=== PATIENT | female | born 1940 | race Caucasian/White ===

== ENCOUNTER 2017-06-15 12:55 | Emergency (ER) | payer BC, OTHER ==
[~2017-06-15] VITALS: Ht 167.6 cm; Wt 104.3 kg
[2017-06-15] MEDS ORDERED: LIDOCAINE 1%/EPI 1:100,000 20 ML VIAL. INJ ONE (13:15)
[2017-06-15] MEDS ORDERED: DIPHTH,PERTUSS(ACELL),TET TOX 0.5 ML DISP.SYRIN. VAX IM ONE (13:30)
--- NOTE | 2017-06-15 13:45 | RAD ---
CT of the head without contrast, 06/15/2017: History: Fall, head trauma, laceration The ventricles are within normal limits in size. There is no shift of the midline structures. There is no evidence of acute intracranial hemorrhage or mass effect. There is mild cerebral atrophy compatible with the patient's age. IMPRESSION: No acute intracranial abnormality is detected. PQRS Compliance Statement: One or more of the following individualized dose reduction techniques were utilized for this examination: 1. Automated exposure control 2. Adjustment of the mA and/or kV according to patient size 3. Use of iterative reconstruction technique
[2017-06-15] MEDS ORDERED: GELATIN SPONGE SIZE 12-7MM SPONGE. TP ONE ×2 (14:00)
[2017-06-15 14:25] VITALS: BP 206/91
--- NOTE | 2017-06-15 14:33 | PHYS DOC ---
Past Medical History Past Medical History: No Pertinent History Past Surgical History: Cholecystectomy, Hysterectomy Alcohol Use: Rarely Drug Use: None Adult General Chief Complaint Chief Complaint: LACERATION/AVULSION HPI HPI Patient is a 76 year old female who presents with laceration or the R eyebrow and R hand after a mechanical fall. Pt reports she was helping her out of a car and backed up and didn't see the object behind her, fell and struck her head. Denies LOC, denies neck or back pain. No blood thinners, no headache , blurry vision or vomiting. Unsure of last tetanus. Review of Systems Review of Systems Constitutional: Denies fever or chills [] Eyes: Denies eye pain [] HENT: Denies nasal congestion or sore throat [] Respiratory: Denies cough or shortness of breath [] Cardiovascular: Denies chest pain GI: Denies abdominal pain, nausea, vomiting, or change in stools : Denies dysuria or hematuria [] Musculoskeletal: Denies back pain Integument: Denies rash, reports lacerations Neurologic: Denies headache, focal weakness or sensory changes [] Current Medications Current Medications Current Medications Medications (Trade) Dose Ordered Sig/[facility] Start Time Stop Time Status Last Admin Dose Admin Diphtheria/ Tetanus/Acell Pertussis (Boostrix) 0.5 ml ONCE ONCE 06/15/17 13:30 06/15/17 13:31 DC 06/15/17 14:18 0.5 ML Gelatin (Gelfoam Size 12-7mm) 1 each 1X ONCE 06/15/17 14:00 06/15/17 14:01 DC Lidocaine/ Epinephrine (Xylocaine 1%-Epi 1:100,000) 20 ml 1X ONCE 06/15/17 13:15 06/15/17 13:19 DC Allergies Allergies Allergies Coded Allergies Type Severity Reaction Last Updated Verified No Known Drug Allergies 02/26/14 No Physical Exam Physical Exam Constitutional: Well developed, well nourished, no acute distress, non-toxic appearance. [] HENT: Normocephalic, 2 cm linear lateral R eyebrow laceration with mild hemostasis, bilateral external ears normal, oropharynx moist, no oral exudates, nose normal.no facial deformity, no trismus Eyes: PERRLA, EOMI, conjunctiva normal, no discharge. [] Neck: Normal range of motion, no stepoffs or tenderness, supple, no stridor. [] Cardiovascular:Heart rate regular with regular rhythm, no murmur [] Lungs & Thorax: Bilateral breath sounds clear to auscultation, no wheeze Abdomen: Bowel sounds normal, soft, no tenderness, no masses, no pulsatile masses. [] Skin: Warm, dry, no erythema, no rash. [] Back: No stepoffs or tenderness, no CVA tenderness. [] Extremities: R hand circular laceration on distal medial palmar aspect with moderate hemostasis, flap but well approximated. Neurologic: Alert and oriented X 3, normal motor function, normal sensory function, no focal deficits noted. [] Psychologic: Affect normal, judgement normal, mood normal. [] Current Patient Data Vital Signs Vital Signs Date Time Temp Pulse Resp B/P (MAP) Pulse Ox O2 Delivery O2 Flow Rate FiO2 06/15/17 14:25 72 20 206/91 (129) 99 Room Air 06/15/17 13:10 97.9 97.9 EKG EKG [] Radiology/Procedures Radiology/Procedures head w/o: CT of the head without contrast, 06/15/2017: History: Fall, head trauma, laceration The ventricles are within normal limits in size. There is no shift of the midline structures. There is no evidence of acute intracranial hemorrhage or mass effect. There is mild cerebral atrophy compatible with the patient's age. IMPRESSION: No acute intracranial abnormality is detected. Course & Med Decision Making Course & Med Decision Making Pertinent Labs and Imaging studies reviewed. (See chart for details) tdap updated, pt's wound irrigated. gelfoam clot placed on the R eyebrow lac, 2 cm, approximated with dermabond, steristrips placed over held down with mastisol. R hand laceration 3 cm, glued with dermabond, steristrips, xeroform, 4x4, acebandage. Instructed to keep hand wrapped for 2 days, monitor for infection. Pt had incidental elevated BP, asx. No history, improved prior to dc but still elevated. Recommended f/u with PCP within 1 week for recheck and intiate HTN meds if continues to have elevated BP. Dragon Disclaimer Dragon Disclaimer This electronic medical record was generated, in whole or in part, using a voice recognition dictation system. Departure Departure Impression: Primary Impression: Head injury Additional Impressions: Laceration Hypertension Disposition: 01 HOME, SELF-CARE Condition: IMPROVED Patient Instructions: Head Injury, Adult, [id number], Laceration Care, Adult , [id number] Problem Qualifiers CHICHI RODRIGUEZ MD Jun 15, 2017 14:33
== END 2017-06-15 14:25 | disposition home or self-care (01) ==
LOC: ER 12:55
DX: S01.111A Laceration without foreign body of right eyelid and periocular area, initial encounter (principal); S61.411A Laceration without foreign body of right hand, initial encounter; I10 Essential (primary) hypertension; W18.09XA Striking against other object with subsequent fall, initial encounter; Y93.89 Activity, other specified; Y99.8 Other external cause status; Y92.89 Other specified places as the place of occurrence of the external cause
CPT/HCPCS: 12001; 12011; 70450; 90471; 90715; 99284-25

== ENCOUNTER 2019-07-10 09:47 | Emergency (ER) | payer BC ==
[~2019-07-10] VITALS: Ht 167.6 cm; Wt 99.8 kg
--- NOTE | 2019-07-10 11:08 | PHYS DOC ---
Past Medical History Past Medical History: Hypertension Past Surgical History: Cholecystectomy, Hysterectomy Alcohol Use: Rarely Drug Use: None Adult General Chief Complaint Chief Complaint: HYPERTENSION HPI HPI Patient is a 79 year old female with history of vertigo, hypertension though she states she has no history of hypertension who presents to the ED today to be evaluated for dizziness and high blood pressure. Patient reports she had cataract surgery this morning done by Dr. Nina the body designer and was noted to be running high blood pressures. She states she also became dizzy, she has history of vertigo but states her dizziness was worse today. Patient states she was nauseated and also vomited. She denies any headache. Patient states the dizziness is worse on laying down. Denies any chest pain or shortness of breath. Patient reports she was put on pediatric blood pressure medicines, she states s he has not been taking it because she has not gotten the prescription filled. She does not remember the name of the medications. Review of Systems Review of Systems Constitutional: Denies fever or chills [] Eyes: Denies change in visual acuity, redness, or eye pain [] HENT: Denies nasal congestion or sore throat [] Respiratory: Denies cough or shortness of breath [] Cardiovascular: Reports high blood pressure. No additional information not addressed in HPI [] GI: Denies abdominal pain, nausea, vomiting, bloody stools or diarrhea [] : Denies dysuria or hematuria [] Musculoskeletal: Denies back pain or joint pain [] Integument: Denies rash or skin lesions [] Neurologic: Reports dizziness. Denies headache, focal weakness or sensory changes [] All other systems were reviewed and found to be within normal limits, except as documented in this note. Current Medications Current Medications Current Medications Medications (Trade) Dose Ordered Sig/[facility] Start Time Stop Time Status Last Admin Dose Admin Meclizine HCl (Antivert) 25 mg 1X ONCE 07/10/19 11:15 07/10/19 11:16 DC 07/10/19 11:27 25 MG Allergies Allergies Allergies Coded Allergies Type Severity Reaction Last Updated Verified No Known Drug Allergies 02/26/14 No Physical Exam Physical Exam Constitutional: Well developed, well nourished, no acute distress, non-toxic appearance. [] HENT: Normocephalic, atraumatic, bilateral external ears normal, oropharynx moist, no oral exudates, nose normal. [] Eyes: Left eye-PERRLA, EOMI, conjunctiva normal, no discharge. Right eye with an eye shield post cataract surgery. Neck: Normal range of motion, no tenderness, supple, no stridor. [] Cardiovascular:Heart rate regular rhythm, no murmur [] Lungs & Thorax: Bilateral breath sounds clear to auscultation [] Abdomen: Bowel sounds normal, soft, no tenderness, no masses, no pulsatile masses. [] Skin: Warm, dry, no erythema, no rash. [] Back: No tenderness, no CVA tenderness. [] Extremities: No tenderness, no cyanosis, no clubbing, ROM intact, +2 left pedal pulse bilaterally, +2 left. Edema, +1 right pedal edema. Neurologic: Alert and oriented X 3, normal motor function, normal sensory function, no focal deficits noted. [] Psychologic: Affect normal, judgement normal, mood normal. [] Current Patient Data Vital Signs Vital Signs Date Time Temp Pulse Resp B/P (MAP) Pulse Ox O2 Delivery O2 Flow Rate FiO2 07/10/19 10:54 97.8 96 20 170/88 (115) 96 Room Air 97.8 Lab Values Laboratory Tests Test 07/10/19 11:10 07/10/19 11:20 07/10/19 13:33 Sodium Level 143 mmol/L (136-145) Potassium Level 4.1 mmol/L (3.5-5.1) Chloride Level 105 mmol/L (98-107) Carbon Dioxide Level 22 mmol/L (21-32) Anion Gap 16 (6-14) H Blood Urea Nitrogen 27 mg/dL (7-20) H Creatinine 1.0 mg/dL (0.6-1.0) Estimated GFR (Cockcroft-Gault) 53.2 BUN/Creatinine Ratio 27 (6-20) H Glucose Level 140 mg/dL (70-99) H Calcium Level 9.0 mg/dL (8.5-10.1) Magnesium Level 2.0 mg/dL (1.8-2.4) Total Bilirubin 0.6 mg/dL (0.2-1.0) Aspartate Amino Transferase (AST) 16 U/L (15-37) Alanine Aminotransferase (ALT) 19 U/L (14-59) Alkaline Phosphatase 154 U/L (46-116) H Creatine Kinase 45 U/L (26-192) Creatine Kinase MB (Mass) 0.5 ng/mL (0.0-3.6) Creatine Kinase MB Relative Index % (0-4) Troponin I Quantitative < 0.017 ng/mL (0.000-0.055) RU-Rbu-A-Type Natriuretic Peptide 221 pg/mL (0-449) Total Protein 7.4 g/dL (6.4-8.2) Albumin 3.7 g/dL (3.4-5.0) Albumin/Globulin Ratio 1.0 (1.0-1.7) Thyroid Stimulating Hormone (TSH) 12.628 uIU/mL (0.358-3.74) H White Blood Count 8.5 x10^3/uL (4.0-11.0) Red Blood Count 4.92 x10^6/uL (3.50-5.40) Hemoglobin 14.7 g/dL (12.0-15.5) Hematocrit 43.5 % (36.0-47.0) Mean Corpuscular Volume 88 fL (79-100) Mean Corpuscular Hemoglobin 30 pg (25-35) Mean Corpuscular Hemoglobin Concent 34 g/dL (31-37) Red Cell Distribution Width 14.0 % (11.5-14.5) Platelet Count 274 x10^3/uL (140-400) Neutrophils (%) (Auto) 72 % (31-73) Lymphocytes (%) (Auto) 21 % (24-48) L Monocytes (%) (Auto) 5 % (0-9) Eosinophils (%) (Auto) 1 % (0-3) Basophils (%) (Auto) 1 % (0-3) Neutrophils # (Auto) 6.1 x10^3/uL (1.8-7.7) Lymphocytes # (Auto) 1.8 x10^3/uL (1.0-4.8) Monocytes # (Auto) 0.4 x10^3/uL (0.0-1.1) Eosinophils # (Auto) 0.0 x10^3/uL (0.0-0.7) Basophils # (Auto) 0.1 x10^3/uL (0.0-0.2) Urine Color Yellow Urine Clarity Clear Urine pH 6.5 Urine Specific [place] 1.015 Urine Protein Negative mg/dL (NEG-TRACE) Urine Glucose (UA) Negative mg/dL (NEG) Urine Ketones (Stick) Negative mg/dL (NEG) Urine Blood Negative (NEG) Urine Nitrite Negative (NEG) Urine Bilirubin Negative (NEG) Urine Urobilinogen Dipstick 0.2 mg/dL (0.2 mg/dL) Urine Leukocyte Esterase Small (NEG) Urine RBC Rare /HPF (0-2) Urine WBC 1-4 /HPF (0-4) Urine Squamous Epithelial Cells Occ /LPF Urine Bacteria Moderate /HPF (0-FEW) Urine Opiates Screen Neg (NEG) Urine Methadone Screen Neg (NEG) Urine Barbiturates Neg (NEG) Urine Phencyclidine Screen Neg (NEG) Urine Amphetamine/Methamphetamine Neg (NEG) Urine Benzodiazepines Screen Neg (NEG) Urine Cocaine Screen Neg (NEG) Urine Cannabinoids Screen Neg (NEG) Urine Ethyl Alcohol Neg (NEG) Laboratory Tests 07/10/19 11:20 Laboratory Tests 07/10/19 11:10 EKG EKG [address] Rashid sinus rhythm HR 87 no STEMI[] Radiology/Procedures Radiology/Procedures []PROCEDURE: CT HEAD WO CONTRAST EXAM: Head CT without contrast. HISTORY: Dizziness after right eye surgery. TECHNIQUE: Computed tomographic images of the head were obtained without contrast. *One or more of the following individualized dose reduction techniques were utilized for this examination: 1. Automated exposure control. 2. Adjustment of the mA and/or kV according to patient size. 3. Use of iterative reconstruction technique. COMPARISON: 06/15/2017. FINDINGS: There is no acute or subacute extra-axial or intraparenchymal hemorrhage. There is no mass effect or midline shift. There is no hydrocephalus. There are areas of decreased attenuation within the cerebral white matter, nonspecific and likely related to chronic small vessel disease. There is cerebral volume loss. There is paranasal sinus mucosal thickening. There is a small amount of fluid within the right mastoid air cells. No suspicious calvarial lesion is seen. There is evidence of bilateral lens surgery. IMPRESSION: 1. No acute intercranial finding. Note is made that MRI is more sensitive for acute infarction. 2. Decreased attenuation within the cerebral white matter, likely due to chronic small vessel disease. 3. Cerebral volume loss. Electronically signed by: Sylvia Nair MD (07/10/2019 11:54 AM) [place] [id number] DICTATED and SIGNED BY: SYLVIA NAIR MD DATE: 07/10/19 1151 PROCEDURE: PORTABLE CHEST 1V EXAM: Chest, single view. HISTORY: Dizziness. COMPARISON: 02/26/2014 FINDINGS: A frontal view of the chest obtained. There is diffuse increased interstitial opacity. There is no consolidation, pleural effusion or pneumothorax. The heart is normal in size. IMPRESSION: Diffuse increased initial opacity suggesting interstitial infiltrate. Electronically signed by: Sylvia Nair MD (07/10/2019 11:51 AM) [place] [id number] DICTATED and SIGNED BY: SYLVIA NAIR MD DATE: 07/10/19 1159 Course & Med Decision Making Course & Med Decision Making Pertinent Labs and Imaging studies reviewed. (See chart for details) This is a 79-year-old female patient presenting to the ED today complaining of dizziness and high blood pressure. Patient was recently diagnosed with hypertension and has not filled her prescription for blood pressure medicine. She was getting cataract surgery when her blood pressure went up and she became dizzy though she reports she has vertigo and her dizziness was worse because she was laid down. CT of the head is negative, labs are negative for any acute findings. Patient voided multiple times in the ED, UA was done which was noted for UTI, discharged on cephalexin. Patient reports she is feeling better. Blood pressure 170/88 with HR in the 80s on arrival to the ED. I spoke with patient's PCP, he reports patient has blood pressure medications (Amlodipine) at home and she is choosing not to take it. He requested we discharge patient to home and ask her to take her blood pressure medicines as prescribed. Dragon Disclaimer Dragon Disclaimer This electronic medical record was generated, in whole or in part, using a voice recognition dictation system. Departure Departure Impression: Primary Impression: Hypertension Additional Impressions: Vertigo UTI (urinary tract infection) Disposition: ADMITTED INPATIENT Condition: STABLE Referrals: HUBER MASCORRO MD (PCP) follow up next week Patient Instructions: Hypertension, Urinary Tract Infection Additional Instructions: You were evaluated in the medicine for high blood pressure. Your primary care doctor requested you start taking amlodipine as he prescribed it to you until completed. Your urine was also noted for infection. We gave you a prescription for cephalexin, ensure you complete the medicine. Scripts Cephalexin (CEPHALEXIN) 500 Mg Tablet 1 TAB PO BID, #14 TAB Prov: EYAD DE LA CRUZ APRN 07/10/19 Problem Qualifiers Primary Impression: Hypertension Hypertension type: unspecified Qualified Codes: I10 - Essential (primary) hypertension Additional Impressions: UTI (urinary tract infection) Urinary tract infection type: site unspecified Hematuria presence: without hematuria Qualified Codes: N39.0 - Urinary tract infection, site not specified EYAD DE LA CRUZ APRN Jul 10, 2019 11:08
[2019-07-10] MEDS ORDERED: MECLIZINE HCL 12.5 MG TABLET. PO ONE (11:15)
[2019-07-10 11:35] LABS: BASO # 0.1 x10^3/uL (0.0-0.2); BASO % 1 % (0-3); EOS % 1 % (0-3); HEMATOCRIT 43.5 % (36.0-47.0); HEMOGLOBIN 14.7 g/dL (12.0-15.5); LYMPH # 1.8 x10^3/uL (1.0-4.8); LYMPH % 21 % (24-48); MEAN CORPUSCULAR HEMOGLOBIN 30 pg (25-35); MEAN CORPUSCULAR HGB CONC 34 g/dL (31-37); MEAN CORPUSCULAR VOLUME 88 fL (79-100); MONO # 0.4 x10^3/uL (0.0-1.1); MONO % 5 % (0-9); NEUT # 6.1 x10^3/uL (1.8-7.7); NEUT % 72 % (31-73); PLATELET COUNT 274 x10^3/uL (140-400); RED BLOOD COUNT 4.92 x10^6/uL (3.50-5.40); WHITE BLOOD COUNT 8.5 x10^3/uL (4.0-11.0)
[2019-07-10 11:38] LABS: GFR 53.2; POTASSIUM 4.1 mmol/L (3.5-5.1)
[2019-07-10 11:46] LABS: ALBUMIN 3.7 g/dL (3.4-5.0); TOTAL BILIRUBIN 0.6 mg/dL (0.2-1.0); TOTAL PROTEIN 7.4 g/dL (6.4-8.2)
[2019-07-10 11:51] LABS: CREATINE KINASE 45 U/L (26-192)
--- NOTE | 2019-07-10 11:55 | RAD ---
EXAM: Chest, single view. HISTORY: Dizziness. COMPARISON: 02/26/2014 FINDINGS: A frontal view of the chest obtained. There is diffuse increased interstitial opacity. There is no consolidation, pleural effusion or pneumothorax. The heart is normal in size. IMPRESSION: Diffuse increased initial opacity suggesting interstitial infiltrate. Electronically signed by: Sylvia Mullins MD (07/10/2019 11:51 AM) [place] [id number]
--- NOTE | 2019-07-10 11:57 | RAD ---
EXAM: Head CT without contrast. HISTORY: Dizziness after right eye surgery. TECHNIQUE: Computed tomographic images of the head were obtained without contrast. *One or more of the following individualized dose reduction techniques were utilized for this examination: 1. Automated exposure control. 2. Adjustment of the mA and/or kV according to patient size. 3. Use of iterative reconstruction technique. COMPARISON: 06/15/2017. FINDINGS: There is no acute or subacute extra-axial or intraparenchymal hemorrhage. There is no mass effect or midline shift. There is no hydrocephalus. There are areas of decreased attenuation within the cerebral white matter, nonspecific and likely related to chronic small vessel disease. There is cerebral volume loss. There is paranasal sinus mucosal thickening. There is a small amount of fluid within the right mastoid air cells. No suspicious calvarial lesion is seen. There is evidence of bilateral lens surgery. IMPRESSION: 1. No acute intercranial finding. Note is made that MRI is more sensitive for acute infarction. 2. Decreased attenuation within the cerebral white matter, likely due to chronic small vessel disease. 3. Cerebral volume loss. Electronically signed by: Sylvia Mullins MD (07/10/2019 11:54 AM) [facility]
--- NOTE | 2019-07-10 12:21 | EKG ---
[facility] [address] [place] [address] Test Date: 2019-07-10 Test Time: 10:58:27 Pat Name: TATI ELISE Department: Room: Gender: F Bathroom Tiling Professional: : 1940 Requested By: EYAD DE LA CRUZ Order Number: [id number] Reading MD: Measurements Intervals [place] Rate: 87 P: 51 DC: 184 QRS: 8 QRSD: 90 T: 37 QT: 374 QTc: 451 Interpretive Statements SINUS RHYTHM NO SPECIFIC ECG ABNORMALITIES RI6.01 No previous ECG available for comparison
[2019-07-10 13:43] LABS: BILIRUBIN,URINE NEGATIVE (NEG); CLARITY,URINE CLEAR; COLOR,URINE YELLOW; NITRITE,URINE NEGATIVE (NEG); PH,URINE 6.5; PROTEIN,URINE NEGATIVE (NEG-TRACE); UROBILINOGEN,URINE 0.2 mg/dL (0.2 mg/dL)
[2019-07-10 13:55] LABS: BACTERIA,URINE MODERATE /HPF (0-FEW); RBC,URINE RARE /HPF (0-2); SQUAMOUS EPITHELIAL CELL,UR OCC /LPF
[2019-07-10 13:58] LABS: BARBITURATES NEG (NEG); BENZODIAZEPINES NEG (NEG); CANNABINOIDS NEG (NEG); COCAINE NEG (NEG); METHADONE NEG (NEG); OPIATES NEG (NEG); PHENCYCLIDINE NEG (NEG)
[2019-07-10 13:59] LABS: AMPHETAMINE/METHAMPHETAMINE NEG (NEG)
[2019-07-10] MEDS ORDERED: CEPH500T PO (15:40)
[2019-07-10 15:45] VITALS: BP 187/77
== END 2019-07-10 15:50 | disposition home or self-care (01) ==
LOC: ER 09:47
DX: N39.0 Urinary tract infection, site not specified (principal); R55 Syncope and collapse; I10 Essential (primary) hypertension; Z90.710 Acquired absence of both cervix and uterus; Z90.49 Acquired absence of other specified parts of digestive tract
CPT/HCPCS: 36415; 70450; 71045; 80053; 80307; 81001; 82553; 83735; 83880; 84443; 84484; 85025; 87086; 93005; 99285; J8597

== ENCOUNTER → 2019-09-22 | Outpatient (CLI) | payer BC ==
[~2019-09-22] MED LIST: CEPH500T PO
--- NOTE | 2019-09-22 16:14 | RAD ---
EXAM: CHEST 2 VIEWS. HISTORY: Influenza. COMPARISON: 07/10/2019. FINDINGS: Frontal and lateral views of the chest are obtained. Mild interstitial opacities in the bases may reflect minimal infiltrates or basilar atelectasis. There is no pneumothorax or pleural effusion. The heart is not enlarged. There are atherosclerotic calcifications of the aorta. Cholecystectomy clips are noted. IMPRESSION: 1. Minimal basilar infiltrates versus atelectasis. Electronically signed by: Shobha Houser MD (09/22/2019 4:11 PM) [facility]
== END | disposition home or self-care (01) ==
LOC: RAD 10:50
PROVIDERS: ATTEND Internal Medicine
DX: I70.0 Atherosclerosis of aorta (principal); J11.1 Influenza due to unidentified influenza virus with other respiratory manifestations
CPT/HCPCS: 71046

== ENCOUNTER 2020-08-21 21:17 | Inpatient (IN) | payer BC ==
[~2020-08-21] VITALS: Ht 167.6 cm; Wt 106.6 kg
[~2020-08-21 21:17] MED LIST changes: +AZIT500T PO; +DEXA4TAB PO; +DOXY100C2 PO
--- NOTE | 2020-08-21 21:37 | PHYS DOC ---
Past Medical History Past Medical History: Hypertension Past Surgical History: Cholecystectomy, Hip Replacement, Hysterectomy, Other Additional Past Surgical Histo: CATARACT Smoking Status: Unknown if ever smoked Alcohol Use: Rarely Drug Use: None Adult General Chief Complaint Chief Complaint: SHORTNESS OF BREATH HPI HPI Patient is a 80 year old female with possible history of hypertension hypothyroidism presents emergency department for new onset of shortness of breath. Patient states that she was diagnosed with COVID-19 approximately 1 week ago and has since been developing worsening shortness of breath. Patient states that she has been having mild nonproductive cough. Denies any fever, chills, chest pain or shortness of breath. Denies any use of oxygen at home. Review of Systems Review of Systems Constitutional: Denies fever or chills [] Eyes: Denies change in visual acuity, redness, or eye pain [] HENT: Denies nasal congestion or sore throat [] Respiratory: Denies cough or shortness of breath [] Cardiovascular: No additional information not addressed in HPI [] GI: Denies abdominal pain, nausea, vomiting, bloody stools or diarrhea [] : Denies dysuria or hematuria [] Musculoskeletal: Denies back pain or joint pain [] Integument: Denies rash or skin lesions [] Neurologic: Denies headache, focal weakness or sensory changes [] Endocrine: Denies polyuria or polydipsia [] All other systems were reviewed and found to be within normal limits, except as documented in this note. Current Medications Current Medications Current Medications Medications (Trade) Dose Ordered Sig/Willis Start Time Stop Time Status Last Admin Dose Admin Azithromycin 250 ml @ 250 mls/hr 1X ONCE 08/21/20 22:45 08/21/20 23:44 UNV Ceftriaxone Sodium (Rocephin) 1 gm 1X ONCE 08/21/20 22:45 08/21/20 22:46 UNV Allergies Allergies Allergies Coded Allergies Type Severity Reaction Last Updated Verified No Known Drug Allergies 02/26/14 No Physical Exam Physical Exam Constitutional: Well developed, well nourished, no acute distress, non-toxic appearance. [] HENT: Normocephalic, atraumatic, bilateral external ears normal, oropharynx moist, no oral exudates, nose normal. [] Eyes: PERRLA, EOMI, conjunctiva normal, no discharge. [] Neck: Normal range of motion, no tenderness, supple, no stridor. [] Cardiovascular:Heart rate regular rhythm, no murmur [] Lungs & Thorax: Bilateral breath sounds clear to auscultation [] Abdomen: Bowel sounds normal, soft, no tenderness, no masses, no pulsatile masses. [] Skin: Warm, dry, no erythema, no rash. [] Back: No tenderness, no CVA tenderness. [] Extremities: No tenderness, no cyanosis, no clubbing, ROM intact, no edema. [] Neurologic: Alert and oriented X 3, normal motor function, normal sensory function, no focal deficits noted. [] Psychologic: Affect normal, judgement normal, mood normal. [] Current Patient Data Vital Signs Vital Signs Date Time Temp Pulse Resp B/P (MAP) Pulse Ox O2 Delivery O2 Flow Rate FiO2 08/21/20 21:28 99.9 108 16 159/84 (109) 97 Room Air 99.9 Lab Values Laboratory Tests Test 08/21/20 21:30 White Blood Count 10.8 x10^3/uL (4.0-11.0) Red Blood Count 5.37 x10^6/uL (3.50-5.40) Hemoglobin 15.3 g/dL (12.0-15.5) Hematocrit 45.7 % (36.0-47.0) Mean Corpuscular Volume 85 fL (79-100) Mean Corpuscular Hemoglobin 29 pg (25-35) Mean Corpuscular Hemoglobin Concent 34 g/dL (31-37) Red Cell Distribution Width 15.6 % (11.5-14.5) H Platelet Count 190 x10^3/uL (140-400) Neutrophils (%) (Auto) 75 % (31-73) H Lymphocytes (%) (Auto) 17 % (24-48) L Monocytes (%) (Auto) 8 % (0-9) Eosinophils (%) (Auto) 0 % (0-3) Basophils (%) (Auto) 0 % (0-3) Neutrophils # (Auto) 8.1 x10^3/uL (1.8-7.7) H Lymphocytes # (Auto) 1.9 x10^3/uL (1.0-4.8) Monocytes # (Auto) 0.8 x10^3/uL (0.0-1.1) Eosinophils # (Auto) 0.0 x10^3/uL (0.0-0.7) Basophils # (Auto) 0.0 x10^3/uL (0.0-0.2) Sodium Level 138 mmol/L (136-145) Potassium Level 3.4 mmol/L (3.5-5.1) L Chloride Level 102 mmol/L (98-107) Carbon Dioxide Level 23 mmol/L (21-32) Anion Gap 13 (6-14) Blood Urea Nitrogen 22 mg/dL (7-20) H Creatinine 1.0 mg/dL (0.6-1.0) Estimated GFR (Cockcroft-Gault) 53.1 BUN/Creatinine Ratio 22 (6-20) H Glucose Level 151 mg/dL (70-99) H Calcium Level 8.0 mg/dL (8.5-10.1) L Total Bilirubin 0.8 mg/dL (0.2-1.0) Aspartate Amino Transferase (AST) 36 U/L (15-37) Alanine Aminotransferase (ALT) 56 U/L (14-59) Alkaline Phosphatase 110 U/L (46-116) Creatine Kinase 29 U/L (26-192) Total Protein 6.2 g/dL (6.4-8.2) L Albumin 2.4 g/dL (3.4-5.0) L Albumin/Globulin Ratio 0.6 (1.0-1.7) L Laboratory Tests 08/21/20 21:30 Laboratory Tests 08/21/20 21:30 EKG EKG [] Radiology/Procedures Radiology/Procedures [] Course & Med Decision Making Course & Med Decision Making Pertinent Labs and Imaging studies reviewed. (See chart for details) 80-year-old female present emergency department for appears to be worsening COVID-19 pneumonia and respiratory failure. At this time the patient is in no acute distress but I am concerned for deterioration given the patient's age and comorbidities. At this time will obtain chest x-ray, basic labs and reevaluate. 22:38 -labs reviewed and unremarkable. Chest x-ray does demonstrate what appears to be new onset of left lower lobe pneumonia. This x-ray is concerning COVID-19 pneumonia. Will start the patient on broad-spectrum antibiotics and plan for admission to the hospital Dragon Disclaimer Dragon Disclaimer This electronic medical record was generated, in whole or in part, using a voice recognition dictation system. Departure Departure Impression: Primary Impression: Community acquired pneumonia Referrals: HUBER MASCORRO MD (PCP) JASPAL JIMENEZ MD Aug 21, 2020 21:37
[2020-08-21 21:48] LABS: BASO % 0 % (0-3); EOS % 0 % (0-3); HEMATOCRIT 45.7 % (36.0-47.0); HEMOGLOBIN 15.3 g/dL (12.0-15.5); LYMPH # 1.9 x10^3/uL (1.0-4.8); LYMPH % 17 % (24-48); MEAN CORPUSCULAR HEMOGLOBIN 29 pg (25-35); MEAN CORPUSCULAR HGB CONC 34 g/dL (31-37); MEAN CORPUSCULAR VOLUME 85 fL (79-100); MONO # 0.8 x10^3/uL (0.0-1.1); MONO % 8 % (0-9); NEUT # 8.1 x10^3/uL (1.8-7.7); NEUT % 75 % (31-73); PLATELET COUNT 190 x10^3/uL (140-400); RED BLOOD COUNT 5.37 x10^6/uL (3.50-5.40); RED CELL DISTRIBUTION WIDTH 15.6 % (11.5-14.5); WHITE BLOOD COUNT 10.8 x10^3/uL (4.0-11.0)
[2020-08-21 21:56] LABS: GFR 53.1; POTASSIUM 3.4 mmol/L (3.5-5.1)
[2020-08-21 22:02] LABS: ALBUMIN 2.4 g/dL (3.4-5.0); ALBUMIN/GLOBULIN RATIO 0.6 (1.0-1.7); TOTAL BILIRUBIN 0.8 mg/dL (0.2-1.0); TOTAL PROTEIN 6.2 g/dL (6.4-8.2)
[2020-08-21] MEDS: ONDANSETRON PF 4 MG/2 ML VIAL. IV PRN (22:50)
--- NOTE | 2020-08-21 22:50 | RAD ---
EXAM: AP View of the chest DATE: 08/21/2020 10:13 PM INDICATION: shortness of breath COMPARISON: 08/14/2020 09/22/2019 FINDINGS: Heart is not enlarged. Aorta is tortuous without scarring calcifications. Diffuse interstitial promin ence bilaterally. Bibasilar parenchymal airspace opacities. No pleural effusion or pneumothorax. IMPRESSION: Progressing bilateral interstitial and airspace opacities, likely multifocal consolidative process carter ch as pneumonia. Electronically signed by: Navneet Hatch MD (08/21/2020 10:48 PM) ELIEL
[2020-08-21] MEDS: MORPHINE SULFATE 2 MG/ML VIAL. IV PRN (22:51)
[2020-08-21] MEDS ORDERED: cefTRIAXone IV Push 1 GM VIAL. IVP ONE (23:00)
[2020-08-21] MEDS ORDERED: AZITHRMYCN 500MG IVPB FOR OMNI 250 ML IV ONE (23:00)
--- NOTE | 2020-08-22 03:15 | NUR ---
Pt. arrived on unit at 0315 by bed from the ED. Pt. states she is dizzy and has some nausea but denies pain. Tele monitor was placed. Call light is within reach with bed in lowest locked position. Will continue to monitor.
[2020-08-22 03:40] VITALS: BP 172/77
[2020-08-22 07:00] VITALS: BP 159/72
--- NOTE | 2020-08-22 08:27 | PDOC ---
PROGRESS NOTES Date of Service: DATE: 08/22/20 TIME: 08:27 Objective Objective Vital Signs Date Time Temp Pulse Resp B/P (MAP) Pulse Ox O2 Delivery O2 Flow Rate FiO2 08/22/20 07:00 98.2 75 19 159/72 (101) 96 Nasal Cannula 4.0 98.2 Intake and Output 08/22/20 07:00 Intake Total 0 ml Output Total 200 ml Balance -200 ml Intake Oral 0 ml Output Urine Total 200 ml Physical Exam MUSCULOSKELETAL: No joint tenderness, Osteoarthritic changes both hands Diagnosis Problem List Problems Medical Problems: (1) Community acquired pneumonia Status: Acute Assessment Assessment Problems Medical Problems: (1) Community acquired pneumonia Status: Acute Plan Plan of Care Problems Medical Problems: (1) Community acquired pneumonia Status: Acute Comment Review of Relevant I have reviewed the following items tiara (where applicable) has been applied. Labs Laboratory Tests Test 08/21/20 21:30 White Blood Count 10.8 x10^3/uL (4.0-11.0) Red Blood Count 5.37 x10^6/uL (3.50-5.40) Hemoglobin 15.3 g/dL (12.0-15.5) Hematocrit 45.7 % (36.0-47.0) Mean Corpuscular Volume 85 fL (79-100) Mean Corpuscular Hemoglobin 29 pg (25-35) Mean Corpuscular Hemoglobin Concent 34 g/dL (31-37) Red Cell Distribution Width 15.6 % (11.5-14.5) Platelet Count 190 x10^3/uL (140-400) Neutrophils (%) (Auto) 75 % (31-73) Lymphocytes (%) (Auto) 17 % (24-48) Monocytes (%) (Auto) 8 % (0-9) Eosinophils (%) (Auto) 0 % (0-3) Basophils (%) (Auto) 0 % (0-3) Neutrophils # (Auto) 8.1 x10^3/uL (1.8-7.7) Lymphocytes # (Auto) 1.9 x10^3/uL (1.0-4.8) Monocytes # (Auto) 0.8 x10^3/uL (0.0-1.1) Eosinophils # (Auto) 0.0 x10^3/uL (0.0-0.7) Basophils # (Auto) 0.0 x10^3/uL (0.0-0.2) Sodium Level 138 mmol/L (136-145) Potassium Level 3.4 mmol/L (3.5-5.1) Chloride Level 102 mmol/L (98-107) Carbon Dioxide Level 23 mmol/L (21-32) Anion Gap 13 (6-14) Blood Urea Nitrogen 22 mg/dL (7-20) Creatinine 1.0 mg/dL (0.6-1.0) Estimated GFR (Cockcroft-Gault) 53.1 BUN/Creatinine Ratio 22 (6-20) Glucose Level 151 mg/dL (70-99) Calcium Level 8.0 mg/dL (8.5-10.1) Total Bilirubin 0.8 mg/dL (0.2-1.0) Aspartate Amino Transf (AST/SGOT) 36 U/L (15-37) Alanine Aminotransferase (ALT/SGPT) 56 U/L (14-59) Alkaline Phosphatase 110 U/L (46-116) Creatine Kinase 29 U/L (26-192) Total Protein 6.2 g/dL (6.4-8.2) Albumin 2.4 g/dL (3.4-5.0) Albumin/Globulin Ratio 0.6 (1.0-1.7) Medications Current Medications Azithromycin 250 ml @ 250 mls/hr 1X ONCE IV Last administered on 08/21/20at 22:52; Start 08/21/20 at 23:00; Stop 08/21/20 at 23:59; Status DC Ceftriaxone Sodium (Rocephin) 1 gm 1X ONCE IVP Last administered on 08/21/20at 22:50; Start 08/21/20 at 23:00; Stop 08/21/20 at 23:01; Status DC Morphine Sulfate (Morphine Sulfate) 2 mg PRN Q2HR PRN IV SEVERE PAIN 7-10 Last administered on 08/21/20at 22:51; Start 08/21/20 at 22:45; Stop 08/22/20 at 22:44 Ondansetron HCl (Zofran) 4 mg PRN Q8HRS PRN IV NAUSEA/VOMITING 1ST CHOICE Last administered on 08/21/20at 22:50; Start 08/21/20 at 22:45; Stop 12/31/20 at 22:44 Vitals/I & O Vital Sign - Last 24 Hours 08/21/20 08/21/20 08/21/20 08/21/20 21:28 22:02 22:32 22:51 Temp 99.9 99.9 Pulse 108 100 96 Resp 16 16 B/P (MAP) 159/84 (109) 125/65 (85) 126/61 (82) Pulse Ox 97 93 93 92 O2 Delivery Room Air Nasal Cannula Nasal Cannula O2 Flow Rate 2.0 2.0 08/21/20 08/21/20 08/22/20 08/22/20 23:02 23:32 00:02 00:32 Pulse 94 90 82 82 Resp 18 18 18 B/P (MAP) 149/61 (90) 148/72 (97) 129/67 (87) 129/63 (85) Pulse Ox 93 93 94 94 O2 Delivery Nasal Cannula Nasal Cannula Nasal Cannula Nasal Cannula O2 Flow Rate 2.0 2.0 2.0 2.0 08/22/20 08/22/20 08/22/20 08/22/20 01:02 01:32 02:02 02:32 Pulse 86 76 78 84 Resp 18 18 18 16 B/P (MAP) 147/72 (97) 141/69 (93) 140/73 (95) 153/76 (101) Pulse Ox 94 94 93 95 O2 Delivery Nasal Cannula Nasal Cannula Nasal Cannula Nasal Cannula O2 Flow Rate 2.0 2.0 2.0 2.0 08/22/20 08/22/20 08/22/20 08/22/20 03:02 03:30 03:40 07:00 Temp 98.1 98.2 98.1 98.2 Pulse 86 73 75 Resp 16 20 19 B/P (MAP) 155/77 (103) 172/77 (108) 159/72 (101) Pulse Ox 92 94 96 O2 Delivery Nasal Cannula Nasal Cannula Nasal Cannula Nasal Cannula O2 Flow Rate 2.0 4.0 4.0 4.0 Intake and Output 08/21/20 08/21/20 08/22/20 15:00 23:00 07:00 Intake Total 0 ml Output Total 200 ml Balance -200 ml Justifications for Admission Other Justification HUBER MASCORRO MD Aug 22, 2020 08:27
[2020-08-22] MEDS ORDERED: DEXAMETHASONE SOD PHOS 20 MG/5 ML VIAL. IV ONE (09:30)
[2020-08-22] MEDS ORDERED: DEXAMETHASONE SOD PHOS 4 MG/ML VIAL IV ONE (09:30)
[2020-08-22] MEDS ORDERED: POTASSIUM CHLORIDE 20 MEQ TABLET.ER. PO ONE (10:00)
--- NOTE | 2020-08-22 10:34 | PDOC ---
PULMONARY PROGRESS NOTES DATE: 08/22/20 TIME: 10:34 Vitals Vital Signs Date Time Temp Pulse Resp B/P (MAP) Pulse Ox O2 Delivery O2 Flow Rate FiO2 08/22/20 07:00 98.2 75 19 159/72 (101) 96 Nasal Cannula 4.0 98.2 Lungs: Clear Labs Laboratory Tests Test 08/21/20 21:30 White Blood Count 10.8 x10^3/uL (4.0-11.0) Red Blood Count 5.37 x10^6/uL (3.50-5.40) Hemoglobin 15.3 g/dL (12.0-15.5) Hematocrit 45.7 % (36.0-47.0) Mean Corpuscular Volume 85 fL (79-100) Mean Corpuscular Hemoglobin 29 pg (25-35) Mean Corpuscular Hemoglobin Concent 34 g/dL (31-37) Red Cell Distribution Width 15.6 % (11.5-14.5) Platelet Count 190 x10^3/uL (140-400) Neutrophils (%) (Auto) 75 % (31-73) Lymphocytes (%) (Auto) 17 % (24-48) Monocytes (%) (Auto) 8 % (0-9) Eosinophils (%) (Auto) 0 % (0-3) Basophils (%) (Auto) 0 % (0-3) Neutrophils # (Auto) 8.1 x10^3/uL (1.8-7.7) Lymphocytes # (Auto) 1.9 x10^3/uL (1.0-4.8) Monocytes # (Auto) 0.8 x10^3/uL (0.0-1.1) Eosinophils # (Auto) 0.0 x10^3/uL (0.0-0.7) Basophils # (Auto) 0.0 x10^3/uL (0.0-0.2) Sodium Level 138 mmol/L (136-145) Potassium Level 3.4 mmol/L (3.5-5.1) Chloride Level 102 mmol/L (98-107) Carbon Dioxide Level 23 mmol/L (21-32) Anion Gap 13 (6-14) Blood Urea Nitrogen 22 mg/dL (7-20) Creatinine 1.0 mg/dL (0.6-1.0) Estimated GFR (Cockcroft-Gault) 53.1 BUN/Creatinine Ratio 22 (6-20) Glucose Level 151 mg/dL (70-99) Calcium Level 8.0 mg/dL (8.5-10.1) Total Bilirubin 0.8 mg/dL (0.2-1.0) Aspartate Amino Transf (AST/SGOT) 36 U/L (15-37) Alanine Aminotransferase (ALT/SGPT) 56 U/L (14-59) Alkaline Phosphatase 110 U/L (46-116) Creatine Kinase 29 U/L (26-192) Total Protein 6.2 g/dL (6.4-8.2) Albumin 2.4 g/dL (3.4-5.0) Albumin/Globulin Ratio 0.6 (1.0-1.7) Laboratory Tests Test 08/21/20 21:30 White Blood Count 10.8 x10^3/uL (4.0-11.0) Red Blood Count 5.37 x10^6/uL (3.50-5.40) Hemoglobin 15.3 g/dL (12.0-15.5) Hematocrit 45.7 % (36.0-47.0) Mean Corpuscular Volume 85 fL (79-100) Mean Corpuscular Hemoglobin 29 pg (25-35) Mean Corpuscular Hemoglobin Concent 34 g/dL (31-37) Red Cell Distribution Width 15.6 % (11.5-14.5) Platelet Count 190 x10^3/uL (140-400) Neutrophils (%) (Auto) 75 % (31-73) Lymphocytes (%) (Auto) 17 % (24-48) Monocytes (%) (Auto) 8 % (0-9) Eosinophils (%) (Auto) 0 % (0-3) Basophils (%) (Auto) 0 % (0-3) Neutrophils # (Auto) 8.1 x10^3/uL (1.8-7.7) Lymphocytes # (Auto) 1.9 x10^3/uL (1.0-4.8) Monocytes # (Auto) 0.8 x10^3/uL (0.0-1.1) Eosinophils # (Auto) 0.0 x10^3/uL (0.0-0.7) Basophils # (Auto) 0.0 x10^3/uL (0.0-0.2) Sodium Level 138 mmol/L (136-145) Potassium Level 3.4 mmol/L (3.5-5.1) Chloride Level 102 mmol/L (98-107) Carbon Dioxide Level 23 mmol/L (21-32) Anion Gap 13 (6-14) Blood Urea Nitrogen 22 mg/dL (7-20) Creatinine 1.0 mg/dL (0.6-1.0) Estimated GFR (Cockcroft-Gault) 53.1 BUN/Creatinine Ratio 22 (6-20) Glucose Level 151 mg/dL (70-99) Calcium Level 8.0 mg/dL (8.5-10.1) Total Bilirubin 0.8 mg/dL (0.2-1.0) Aspartate Amino Transf (AST/SGOT) 36 U/L (15-37) Alanine Aminotransferase (ALT/SGPT) 56 U/L (14-59) Alkaline Phosphatase 110 U/L (46-116) Creatine Kinase 29 U/L (26-192) Total Protein 6.2 g/dL (6.4-8.2) Albumin 2.4 g/dL (3.4-5.0) Albumin/Globulin Ratio 0.6 (1.0-1.7) Medications Active Scripts Medications Dose Route/Sig Max Daily Dose Days Date Category Doxycycline Hyclate 100 Mg Capsule 1 Cap PO BID 08/15/20 Rx Zithromax (Azithromycin) 500 Mg Tablet 1 Tab PO DAILY 08/15/20 Rx Dexamethasone 4 Mg Tablet 4 Mg PO DAILY 5 08/15/20 Rx Impression . Full note dictated hypoxemic respiratory failure secondary to COVID-19 viral p[facility], see orders SANDY CARCAMO MD Aug 22, 2020 10:34
[2020-08-22 11:00] VITALS: BP 159/72
[2020-08-22] MEDS ORDERED: REMDESIVIR LOAD in IV NORMAL SALINE 250ML TV IV ONE (11:00)
[2020-08-22] MEDS: IV NORMAL SALINE 1000ML BAG 1,000 ML IV SCH ×2 (11:01→20:22)
[2020-08-22 11:03] LABS: BASO % 0 % (0-3); EOS % 0 % (0-3); LYMPH # 1.4 x10^3/uL (1.0-4.8); LYMPH % 18 % (24-48); MEAN CORPUSCULAR HEMOGLOBIN 28 pg (25-35); MEAN CORPUSCULAR HGB CONC 32 g/dL (31-37); MEAN CORPUSCULAR VOLUME 86 fL (79-100); MONO # 0.7 x10^3/uL (0.0-1.1); MONO % 9 % (0-9); NEUT # 5.7 x10^3/uL (1.8-7.7); NEUT % 72 % (31-73); PLATELET COUNT 163 x10^3/uL (140-400); RED BLOOD COUNT 5.03 x10^6/uL (3.50-5.40); RED CELL DISTRIBUTION WIDTH 15.7 % (11.5-14.5); WHITE BLOOD COUNT 7.9 x10^3/uL (4.0-11.0)
[2020-08-22] MEDS: ENOXAPARIN 40 MG/0.4 ML SYRINGE. SQ SCH ×2 (11:03→20:23)
--- NOTE | 2020-08-22 11:06 | PDOC ---
Provider Note Date of Service: DATE: 08/22/20 TIME: 11:06 Provider Note Pt seen.H&P dictated.#[id number]. Justifications for Admission Other Justification HUBER MASCORRO MD Aug 22, 2020 11:06
[2020-08-22 11:18] LABS: CALCIUM 8.1 mg/dL (8.5-10.1); CREATININE 0.8 mg/dL (0.6-1.0); GFR 68.7; POTASSIUM 3.1 mmol/L (3.5-5.1)
[2020-08-22] MEDS: MORPHINE SULFATE 2 MG/ML VIAL. IV PRN (11:20)
[2020-08-22] MEDS: ONDANSETRON PF 4 MG/2 ML VIAL. IV PRN (11:23)
--- NOTE | 2020-08-22 11:47 | CONS ---
DATE OF CONSULTATION: 08/22/2020 ATTENDING PHYSICIAN: Dr. Floyd REASON FOR CONSULTATION: The patient is seen in pulmonary consultation at the request of Dr. Floyd for increasing shortness of air. HISTORY OF PRESENT ILLNESS: The patient is an 80-year-old that presents with increasing shortness of breath. She actually tested positive for COVID-19 approximately a week ago. She was in the hospital for 1 day and wanted to be discharged home. She now presents with increasing shortness of breath, body aches and loss of taste. She is requiring oxygen supplementation. I was asked to see her in consultation. She is currently on 4 liters of oxygen supplementation. Normally, she does not wear oxygen. She has been afebrile since admission. She has been given some steroids. In addition to empiric antibiotics, she was also started on remdesivir. PAST MEDICAL HISTORY: Hypertension. PAST SURGICAL HISTORY: Status post cholecystectomy, hip replacement, hysterectomy, cataract extraction. SOCIAL HISTORY: She has never smoked. ALLERGIES: No known drug allergies. REVIEW OF SYSTEMS: CONSTITUTIONAL: Subjective fever. EYES: No change in visual acuity. HENT: Some nasal congestion or sore throat. PULMONARY: As indicated above. CARDIOVASCULAR: No chest pain. No pressure. GASTROINTESTINAL: No nausea, vomiting, diarrhea. GENITOURINARY: No dysuria or frequency. MUSCULOSKELETAL: No localized muscle aches reports some diffuse muscle aches. SKIN: No new skin rashes. NEUROLOGIC: No headaches, diplopia or blurred vision. CURRENT MEDICATION: List was reviewed. PHYSICAL EXAMINATION: GENERAL: She was afebrile on 4 liters of oxygen supplementation. LUNGS: Scattered rhonchi. CARDIOVASCULAR: Regular rate and rhythm with S1, S2, no S3. ABDOMEN: Soft, nontender. EXTREMITIES: No clubbing, cyanosis. Minimal edema. NEUROLOGICAL: The patient is awake, alert, following commands. A detailed neuro exam was not performed. LABORATORY DATA: PCR was positive on the . White count was normal. She had lymphopenia. Electrolytes were noted. BUN was 21, creatinine was 1.0. AST and ALT were normal. Albumin was low. IMPRESSION: 1. Acute hypoxemic respiratory failure. 2. COVID-19 viral pneumonia. 3. Hypertension. 4. Generalized weakness and muscle aches secondary to COVID-19. 5. Morbid obesity. PLAN: 1. Continue current support with oxygen supplementation. 2. Remdesivir. 3. Empiric antibiotics. 4. Dexamethasone. 5. DVT prophylaxis. Dr. Floyd, I do appreciate the privilege in sharing in the patient's care. SANDY CARCAMO MD DR: MAME/oliver JOB#: [id number] / [id number]
--- NOTE | 2020-08-22 12:15 | HP ---
ADMIT DATE: 08/21/2020 MEDICAL HISTORY AND PHYSICAL REASON FOR ADMISSION TO THE HOSPITAL: COVID pneumonia. HISTORY OF PRESENT ILLNESS: The patient is an 80-year-old female patient known to me. She was in the hospital a week ago before [place] for weakness and a syncopal episode. At that time, the patient's family had COVID and the patient was feeling better. She wanted to go home, was discharged the next day, but the COVID test was done. It was pending and it came back positive for her too. In the meantime, the patient was having weakness, cough, congestion, not any better. She came back to the hospital and she was requiring oxygen. Chest x-ray shows infiltrate in the lung and was admitted for further treatment. PAST MEDICAL HISTORY: History of hypothyroidism, arthritis, hypertension. PAST SURGICAL HISTORY: Right hip replacement. ALLERGIES: No known drug allergies. MEDICATIONS: Not any home medications. The patient was discharged last week on Zithromax, doxycycline and dexamethasone. PERSONAL HISTORY: Denies smoking, alcohol, drug abuse. FAMILY HISTORY: Positive for diabetes in the daughter and kidney problems. REVIEW OF SYMPTOMS: CARDIAC: No chest pain. Complains of cough, shortness of breath, hard to breathe. Rest of the 14-system was reviewed and negative. PHYSICAL EXAMINATION: VITAL SIGNS: At the time of admission shows a temperature of 99.9, pulse 108, respirations 16, blood pressure 160/84, 93 on 2 liters. HEENT: Head is atraumatic. Pupils equal. Oral cavity: No congestion. NECK: Supple. Thyroid not enlarged. JVD not elevated. CHEST: Symmetrical. CARDIOVASCULAR: S1, S2. LUNGS: Crackles at the base, right side. ABDOMEN: Soft, bowel sounds present, no mass palpable. EXTERNAL GENITALIA: No Gutierrez. RECTAL: Deferred. EXTREMITIES: No calf tenderness, no edema. Pulses 1+. NEUROLOGIC: Moving all extremities. The patient has a scratch in the right horton from scratch couple of days ago. LABORATORY DATA: Shows a white count of 11, hemoglobin 15, platelets 190. Electrolytes are sodium 138, potassium 3.4, chloride 102, bicarb 23, BUN 22, creatinine 1.0. LFTs normal. Chest x-ray shows bilateral interstitial airspace opacities. FINAL IMPRESSION: 1. COVID pneumonia. 2. COVID recent infection. 3. History of hypertension. 4. Arthritis. PLAN: At this time, the patient is admitted to the hospital, hydrate IV fluids, started on Zithromax and Rocephin. Case discussed with Pulmonary today. Started on remdesivir and continue on dexamethasone and see how she improves. DVT prophylaxis with Lovenox. HUBER MASCORRO MD DR: TAMIA/oliver JOB#: [id number] / [id number]
[2020-08-22 15:00] VITALS: BP 143/68
--- NOTE | 2020-08-22 15:48 | NUR ---
SW following for discharge planning. Spoke with RN and reviewed chart. Pt from home. PT/OT to evaluate. Pt COVID positive, 4l 02. SW called into pt's room, no answer. Pt on IV Zithromax and IV Remdesivir, day 1. SW following.
[2020-08-22 19:00] VITALS: BP 159/72
[2020-08-22] MEDS: AZITHROMYCIN 250 MG in IV NORMAL SALINE 250ML 250 ML IV SCH (20:22)
[2020-08-22] MEDS: cefTRIAXone IV Push 1 GM VIAL. IVP SCH (20:23)
[2020-08-22] MEDS: LACTOBACILLUS RHAMNOSUS GG 1 CAPSULE. PO SCH (20:23)
[2020-08-22 23:00] VITALS: BP 179/75
[2020-08-23] VITALS (8 sets, daily range): BP systolic 164–210; BP diastolic 74–93
[2020-08-23] MEDS: IV NORMAL SALINE 1000ML BAG 1,000 ML IV SCH ×2 (03:18→11:38)
[2020-08-23 04:56] LABS: BASO % 1 % (0-3); EOS % 0 % (0-3); HEMATOCRIT 40.7 % (36.0-47.0); HEMOGLOBIN 13.2 g/dL (12.0-15.5); LYMPH % 19 % (24-48); MEAN CORPUSCULAR HEMOGLOBIN 28 pg (25-35); MEAN CORPUSCULAR HGB CONC 32 g/dL (31-37); MEAN CORPUSCULAR VOLUME 86 fL (79-100); MONO # 0.4 x10^3/uL (0.0-1.1); MONO % 8 % (0-9); NEUT # 3.9 x10^3/uL (1.8-7.7); NEUT % 73 % (31-73); PLATELET COUNT 149 x10^3/uL (140-400); RED BLOOD COUNT 4.75 x10^6/uL (3.50-5.40); RED CELL DISTRIBUTION WIDTH 15.4 % (11.5-14.5); WHITE BLOOD COUNT 5.3 x10^3/uL (4.0-11.0)
[2020-08-23] MEDS ORDERED: DEXAMETHASONE 4 MG TABLET PO SCH (08:00)
[2020-08-23] MEDS: LACTOBACILLUS RHAMNOSUS GG 1 CAPSULE. PO SCH ×2 (08:29→20:53)
[2020-08-23] MEDS: ENOXAPARIN 40 MG/0.4 ML SYRINGE. SQ SCH ×2 (08:29→20:53)
[2020-08-23] MEDS: DEXAMETHASONE 4 MG TABLET PO SCH (08:30)
[2020-08-23] MEDS: ACETAMINOPHEN 325 MG TABLET. PO PRN ×2 (09:21→17:19)
--- NOTE | 2020-08-23 09:50 | PDOC ---
PULMONARY PROGRESS NOTES DATE: 08/23/20 TIME: 09:49 Subjective Patient about the same not more short of air no increasing chest pain no pressure Vitals Vital Signs Date Time Temp Pulse Resp B/P (MAP) Pulse Ox O2 Delivery O2 Flow Rate FiO2 08/23/20 07:59 96.3 62 17 206/91 (129) 92 Nasal Cannula 4.0 96.3 ROS: No Nausea, No Chest Pain, No Abdominal Pain, No Increase Cough Lungs: Clear, Crackles Cardiovascular: S1, S2 Abdomen: Soft Neuro Exam: Alert Extremities: No Edema Skin: Warm Labs Laboratory Tests Test 08/21/20 21:30 08/22/20 09:59 08/23/20 04:30 White Blood Count 10.8 x10^3/uL (4.0-11.0) 7.9 x10^3/uL (4.0-11.0) 5.3 x10^3/uL (4.0-11.0) Red Blood Count 5.37 x10^6/uL (3.50-5.40) 5.03 x10^6/uL (3.50-5.40) 4.75 x10^6/uL (3.50-5.40) Hemoglobin 15.3 g/dL (12.0-15.5) 14.0 g/dL (12.0-15.5) 13.2 g/dL (12.0-15.5) Hematocrit 45.7 % (36.0-47.0) 43.0 % (36.0-47.0) 40.7 % (36.0-47.0) Mean Corpuscular Volume 85 fL (79-100) 86 fL (79-100) 86 fL (79-100) Mean Corpuscular Hemoglobin 29 pg (25-35) 28 pg (25-35) 28 pg (25-35) Mean Corpuscular Hemoglobin Concent 34 g/dL (31-37) 32 g/dL (31-37) 32 g/dL (31-37) Red Cell Distribution Width 15.6 % (11.5-14.5) 15.7 % (11.5-14.5) 15.4 % (11.5-14.5) Platelet Count 190 x10^3/uL (140-400) 163 x10^3/uL (140-400) 149 x10^3/uL (140-400) Neutrophils (%) (Auto) 75 % (31-73) 72 % (31-73) 73 % (31-73) Lymphocytes (%) (Auto) 17 % (24-48) 18 % (24-48) 19 % (24-48) Monocytes (%) (Auto) 8 % (0-9) 9 % (0-9) 8 % (0-9) Eosinophils (%) (Auto) 0 % (0-3) 0 % (0-3) 0 % (0-3) Basophils (%) (Auto) 0 % (0-3) 0 % (0-3) 1 % (0-3) Neutrophils # (Auto) 8.1 x10^3/uL (1.8-7.7) 5.7 x10^3/uL (1.8-7.7) 3.9 x10^3/uL (1.8-7.7) Lymphocytes # (Auto) 1.9 x10^3/uL (1.0-4.8) 1.4 x10^3/uL (1.0-4.8) 1.0 x10^3/uL (1.0-4.8) Monocytes # (Auto) 0.8 x10^3/uL (0.0-1.1) 0.7 x10^3/uL (0.0-1.1) 0.4 x10^3/uL (0.0-1.1) Eosinophils # (Auto) 0.0 x10^3/uL (0.0-0.7) 0.0 x10^3/uL (0.0-0.7) 0.0 x10^3/uL (0.0-0.7) Basophils # (Auto) 0.0 x10^3/uL (0.0-0.2) 0.0 x10^3/uL (0.0-0.2) 0.0 x10^3/uL (0.0-0.2) Sodium Level 138 mmol/L (136-145) 141 mmol/L (136-145) Potassium Level 3.4 mmol/L (3.5-5.1) 3.1 mmol/L (3.5-5.1) Chloride Level 102 mmol/L (98-107) 105 mmol/L (98-107) Carbon Dioxide Level 23 mmol/L (21-32) 25 mmol/L (21-32) Anion Gap 13 (6-14) 11 (6-14) Blood Urea Nitrogen 22 mg/dL (7-20) 21 mg/dL (7-20) Creatinine 1.0 mg/dL (0.6-1.0) 0.8 mg/dL (0.6-1.0) Estimated GFR (Cockcroft-Gault) 53.1 68.7 BUN/Creatinine Ratio 22 (6-20) Glucose Level 151 mg/dL (70-99) 116 mg/dL (70-99) Calcium Level 8.0 mg/dL (8.5-10.1) 8.1 mg/dL (8.5-10.1) Total Bilirubin 0.8 mg/dL (0.2-1.0) Aspartate Amino Transf (AST/SGOT) 36 U/L (15-37) Alanine Aminotransferase (ALT/SGPT) 56 U/L (14-59) Alkaline Phosphatase 110 U/L (46-116) Creatine Kinase 29 U/L (26-192) Total Protein 6.2 g/dL (6.4-8.2) Albumin 2.4 g/dL (3.4-5.0) Albumin/Globulin Ratio 0.6 (1.0-1.7) Thyroid Stimulating Hormone (TSH) 1.390 uIU/mL (0.358-3.74) Laboratory Tests Test 08/22/20 09:59 08/23/20 04:30 White Blood Count 7.9 x10^3/uL (4.0-11.0) 5.3 x10^3/uL (4.0-11.0) Red Blood Count 5.03 x10^6/uL (3.50-5.40) 4.75 x10^6/uL (3.50-5.40) Hemoglobin 14.0 g/dL (12.0-15.5) 13.2 g/dL (12.0-15.5) Hematocrit 43.0 % (36.0-47.0) 40.7 % (36.0-47.0) Mean Corpuscular Volume 86 fL (79-100) 86 fL (79-100) Mean Corpuscular Hemoglobin 28 pg (25-35) 28 pg (25-35) Mean Corpuscular Hemoglobin Concent 32 g/dL (31-37) 32 g/dL (31-37) Red Cell Distribution Width 15.7 % (11.5-14.5) 15.4 % (11.5-14.5) Platelet Count 163 x10^3/uL (140-400) 149 x10^3/uL (140-400) Neutrophils (%) (Auto) 72 % (31-73) 73 % (31-73) Lymphocytes (%) (Auto) 18 % (24-48) 19 % (24-48) Monocytes (%) (Auto) 9 % (0-9) 8 % (0-9) Eosinophils (%) (Auto) 0 % (0-3) 0 % (0-3) Basophils (%) (Auto) 0 % (0-3) 1 % (0-3) Neutrophils # (Auto) 5.7 x10^3/uL (1.8-7.7) 3.9 x10^3/uL (1.8-7.7) Lymphocytes # (Auto) 1.4 x10^3/uL (1.0-4.8) 1.0 x10^3/uL (1.0-4.8) Monocytes # (Auto) 0.7 x10^3/uL (0.0-1.1) 0.4 x10^3/uL (0.0-1.1) Eosinophils # (Auto) 0.0 x10^3/uL (0.0-0.7) 0.0 x10^3/uL (0.0-0.7) Basophils # (Auto) 0.0 x10^3/uL (0.0-0.2) 0.0 x10^3/uL (0.0-0.2) Sodium Level 141 mmol/L (136-145) Potassium Level 3.1 mmol/L (3.5-5.1) Chloride Level 105 mmol/L (98-107) Carbon Dioxide Level 25 mmol/L (21-32) Anion Gap 11 (6-14) Blood Urea Nitrogen 21 mg/dL (7-20) Creatinine 0.8 mg/dL (0.6-1.0) Estimated GFR (Cockcroft-Gault) 68.7 Glucose Level 116 mg/dL (70-99) Calcium Level 8.1 mg/dL (8.5-10.1) Thyroid Stimulating Hormone (TSH) 1.390 uIU/mL (0.358-3.74) Medications Active Scripts Medications Dose Route/Sig Max Daily Dose Days Date Category Doxycycline Hyclate 100 Mg Capsule 1 Cap PO BID 08/15/20 Rx Zithromax (Azithromycin) 500 Mg Tablet 1 Tab PO DAILY 08/15/20 Rx Dexamethasone 4 Mg Tablet 4 Mg PO DAILY 5 08/15/20 Rx Impression . IMPRESSION: 1. Acute hypoxemic respiratory failure. 2. COVID-19 viral pneumonia. 3. Hypertension. 4. Generalized weakness and muscle aches secondary to COVID-19. 5. Morbid obesity. Plan . We will continue current support Discussed with RN Up to chair 1. Continue current support with oxygen supplementation. 2. Remdesivir. 3. Empiric antibiotics. 4. Dexamethasone. 5. DVT prophylaxis. SANDY CARCAMO MD Aug 23, 2020 09:50
[2020-08-23] MEDS ORDERED: LEVO75TA5 PO (10:04)
[2020-08-23] MEDS ORDERED: MAG HYDROX/ALUMINUM HYD/SIMETH 30 ML ORAL.SUSP PO PRN (11:00)
[2020-08-23] MEDS ORDERED: POTASSIUM CHLORIDE 20 MEQ TABLET.ER. PO ONE ×2 (11:00→14:00)
[2020-08-23] MEDS: LEVOTHYROXINE 75 MCG TABLET PO SCH (11:38)
[2020-08-23] MEDS: PANTOPRAZOLE 40 MG TABLET.DR. PO SCH (11:38)
[2020-08-23] MEDS: REMDESIVIR 100mg in NORMAL SALINE 250ML X 4 DAYS IV SCH (11:38)
[2020-08-23 12:06] LABS: CALCIUM 7.7 mg/dL (8.5-10.1); CREATININE 0.7 mg/dL (0.6-1.0); GFR 80.1; POTASSIUM 4.4 mmol/L (3.5-5.1)
--- NOTE | 2020-08-23 12:43 | PDOC ---
PROGRESS NOTES Date of Service: DATE: 08/23/20 TIME: 12:41 Subjective Subjective feels better today Objective Objective Vital Signs Date Time Temp Pulse Resp B/P (MAP) Pulse Ox O2 Delivery O2 Flow Rate FiO2 08/23/20 11:17 97.3 67 20 176/74 (108) 96 Nasal Cannula 4.0 97.3 Intake and Output 08/23/20 07:00 Intake Total 1070 ml Output Total 200 ml Balance 870 ml Intake Oral 820 ml IV Total 250 ml Output Urine Total 200 ml # Voids 6 Physical Exam Abdomen: Soft Heart: Regular rate, Normal S1 Extremities: No clubbing General: Alert HEENT: Atraumatic MUSCULOSKELETAL: No joint tenderness, Osteoarthritic changes both hands Neck: Supple Neuro: Normal speech Psych/Mental Status: Mental status NL Skin: No breakdown Diagnosis Problem List Problems Medical Problems: (1) Community acquired pneumonia Status: Acute Assessment Assessment Problems Medical Problems: (1) Community acquired pneumonia Status: Acute FINAL IMPRESSION: 1. COVID pneumonia. 2. COVID recent infection. 3. History of hypertension. 4. Arthritis. 5. Hypothyroidism. PLAN: pt continue to improve on present treatment. dexamethsone+remdesivir 4 L nasal canula oxygen Lovenox for dvt prevention. At this time, the patient is admitted to the hospital, hydrate IV fluids, started on Zithromax and Rocephin. Case discussed with Pulmonary today. Started on remdesivir and continue on dexamethasone and see how she improves. DVT prophylaxis with Lovenox. Plan Plan of Care Problems Medical Problems: (1) Community acquired pneumonia Status: Acute Comment Review of Relevant I have reviewed the following items tiara (where applicable) has been applied. Labs Laboratory Tests Test 08/23/20 04:30 White Blood Count 5.3 x10^3/uL (4.0-11.0) Red Blood Count 4.75 x10^6/uL (3.50-5.40) Hemoglobin 13.2 g/dL (12.0-15.5) Hematocrit 40.7 % (36.0-47.0) Mean Corpuscular Volume 86 fL (79-100) Mean Corpuscular Hemoglobin 28 pg (25-35) Mean Corpuscular Hemoglobin Concent 32 g/dL (31-37) Red Cell Distribution Width 15.4 % (11.5-14.5) Platelet Count 149 x10^3/uL (140-400) Neutrophils (%) (Auto) 73 % (31-73) Lymphocytes (%) (Auto) 19 % (24-48) Monocytes (%) (Auto) 8 % (0-9) Eosinophils (%) (Auto) 0 % (0-3) Basophils (%) (Auto) 1 % (0-3) Neutrophils # (Auto) 3.9 x10^3/uL (1.8-7.7) Lymphocytes # (Auto) 1.0 x10^3/uL (1.0-4.8) Monocytes # (Auto) 0.4 x10^3/uL (0.0-1.1) Eosinophils # (Auto) 0.0 x10^3/uL (0.0-0.7) Basophils # (Auto) 0.0 x10^3/uL (0.0-0.2) Sodium Level 144 mmol/L (136-145) Potassium Level 4.4 mmol/L (3.5-5.1) Chloride Level 109 mmol/L (98-107) Carbon Dioxide Level 24 mmol/L (21-32) Anion Gap 11 (6-14) Blood Urea Nitrogen 21 mg/dL (7-20) Creatinine 0.7 mg/dL (0.6-1.0) Estimated GFR (Cockcroft-Gault) 80.1 Glucose Level 147 mg/dL (70-99) Calcium Level 7.7 mg/dL (8.5-10.1) Thyroid Stimulating Hormone (TSH) 1.390 uIU/mL (0.358-3.74) Medications Current Medications Acetaminophen (Tylenol) 650 mg PRN Q6HRS PRN PO MILD PAIN / TEMP > 100.3'F Last administered on 08/23/20at 09:21; Start 08/23/20 at 08:45 Al Hydroxide/Mg Hydroxide (Mylanta Plus Xs) 30 ml PRN Q2HR PRN PO HEARTBURN / GAS Last administered on 08/23/20at 11:38; Start 08/23/20 at 11:00 Azithromycin 250 mg/Sodium Chloride 250 ml @ 250 mls/hr Q24H IV Last administered on 08/22/20at 20:22; Start 08/22/20 at 21:00 Ceftriaxone Sodium (Rocephin) 1 gm Q24H IVP Last administered on 08/22/20at 20:23; Start 08/22/20 at 21:00 Dexamethasone (Decadron) 4 mg DAILYWBKFT PO ; Start 08/23/20 at 08:00; Stop 08/22/20 at 10:35; Status DC Dexamethasone (Decadron) 6 mg DAILYWBKFT PO Last administered on 08/23/20at 08:30; Start 08/23/20 at 08:00 Guaifenesin (Mucinex) 600 mg BID PO Last administered on 08/23/20at 08:29; Start 08/22/20 at 21:00 Lactobacillus Rhamnosus (Culturelle) 1 cap BID PO Last administered on 08/23/20at 08:29; Start 08/22/20 at 21:00 Levothyroxine Sodium (Synthroid) 75 mcg DAILY06 PO Last administered on 08/23/20at 11:38; Start 08/23/20 at 11:00 Pantoprazole Sodium (Protonix) 40 mg DAILYAC PO Last administered on 08/23/20at 11:38; Start 08/23/20 at 11:30 Potassium Chloride (Klor-Con) 20 meq 1X ONCE PO ; Start 08/23/20 at 14:00; Stop 08/23/20 at 14:01 Potassium Chloride (Klor-Con) 40 meq 1X ONCE PO Last administered on 08/23/20at 11:38; Start 08/23/20 at 11:00; Stop 08/23/20 at 11:04; Status DC Remdesivir 100 mg/ Sodium Chloride 230 ml @ 460 mls/hr Q24H IV Last administered on 08/23/20at 11:38; Start 08/23/20 at 11:00; Stop 08/26/20 at 11:29 Vitals/I & O Vital Sign - Last 24 Hours 08/22/20 08/22/20 08/22/20 08/22/20 15:00 19:00 20:14 23:00 Temp 96.1 97.3 97.5 96.1 97.3 97.5 Pulse 78 74 79 Resp 17 18 18 B/P (MAP) 143/68 (93) 159/72 (101) 179/75 (109) Pulse Ox 94 97 92 O2 Delivery Nasal Cannula Nasal Cannula Nasal Cannula Nasal Cannula O2 Flow Rate 4.0 4.0 4.0 4.0 08/23/20 08/23/20 08/23/20 08/23/20 03:00 07:59 08:00 08:45 Temp 97.0 96.3 97.0 96.3 Pulse 74 62 60 Resp 18 17 B/P (MAP) 180/77 (111) 206/91 (129) 167/77 (107) Pulse Ox 92 92 O2 Delivery Nasal Cannula Nasal Cannula Nasal Cannula O2 Flow Rate 4.0 4.0 4.0 08/23/20 11:17 Temp 97.3 97.3 Pulse 67 Resp 20 B/P (MAP) 176/74 (108) Pulse Ox 96 O2 Delivery Nasal Cannula O2 Flow Rate 4.0 Intake and Output 08/22/20 08/22/20 08/23/20 15:00 23:00 07:00 Intake Total 450 ml 500 ml 120 ml Output Total 200 ml Balance 250 ml 500 ml 120 ml Justifications for Admission Other Justification HUBER MASCORRO MD Aug 23, 2020 12:43
[2020-08-23] MEDS: cefTRIAXone IV Push 1 GM VIAL. IVP SCH (20:52)
[2020-08-23] MEDS: AZITHROMYCIN 250 MG in IV NORMAL SALINE 250ML 250 ML IV SCH (20:53)
[2020-08-23] MEDS: hydrALAZINE 20 MG/ML VIAL. IVP PRN (22:55)
[2020-08-24] VITALS (9 sets, daily range): BP systolic 140–193; BP diastolic 65–94
[2020-08-24] MEDS: hydrALAZINE 20 MG/ML VIAL. IVP PRN ×2 (04:21→15:46)
[2020-08-24] MEDS: ACETAMINOPHEN 325 MG TABLET. PO PRN (04:31)
[2020-08-24 04:38] LABS: CALCIUM 8.2 mg/dL (8.5-10.1); CREATININE 0.8 mg/dL (0.6-1.0); GFR 68.7; POTASSIUM 4.6 mmol/L (3.5-5.1)
[2020-08-24] MEDS: LEVOTHYROXINE 75 MCG TABLET PO SCH (06:19)
[2020-08-24] MEDS: PANTOPRAZOLE 40 MG TABLET.DR. PO SCH (08:41)
[2020-08-24] MEDS: ENOXAPARIN 40 MG/0.4 ML SYRINGE. SQ SCH ×2 (08:41→21:41)
[2020-08-24] MEDS: DEXAMETHASONE 4 MG TABLET PO SCH (08:41)
[2020-08-24] MEDS: LACTOBACILLUS RHAMNOSUS GG 1 CAPSULE. PO SCH ×2 (08:42→21:41)
[2020-08-24] MEDS ORDERED: ONDANSETRON PF 4 MG/2 ML VIAL. IVP PRN (09:30)
[2020-08-24] MEDS ORDERED: ONDANSETRON ODT 4 MG TAB.RAPDIS. PO PRN (09:30)
[2020-08-24] MEDS: HYDROcodone/APAP 5/325MG 1 TAB TABLET PO PRN ×2 (10:00→22:05)
--- NOTE | 2020-08-24 10:40 | PDOC ---
PULMONARY PROGRESS NOTES DATE: 08/24/20 TIME: 10:37 Subjective Patient remains on 4 liters N/C no increased SOA or cough no overnight events Feeling better today Vitals Vital Signs Date Time Temp Pulse Resp B/P (MAP) Pulse Ox O2 Delivery O2 Flow Rate FiO2 08/24/20 08:42 73 150/70 08/24/20 07:14 97.8 20 92 Nasal Cannula 4.0 97.8 ROS: No Nausea, No Chest Pain, No Abdominal Pain, No Increase Cough Lungs: Clear, Crackles Cardiovascular: S1, S2 Abdomen: Soft Neuro Exam: Alert Extremities: No Edema Skin: Warm Labs Laboratory Tests Test 08/23/20 04:30 08/24/20 03:30 White Blood Count 5.3 x10^3/uL (4.0-11.0) Red Blood Count 4.75 x10^6/uL (3.50-5.40) Hemoglobin 13.2 g/dL (12.0-15.5) Hematocrit 40.7 % (36.0-47.0) Mean Corpuscular Volume 86 fL (79-100) Mean Corpuscular Hemoglobin 28 pg (25-35) Mean Corpuscular Hemoglobin Concent 32 g/dL (31-37) Red Cell Distribution Width 15.4 % (11.5-14.5) Platelet Count 149 x10^3/uL (140-400) Neutrophils (%) (Auto) 73 % (31-73) Lymphocytes (%) (Auto) 19 % (24-48) Monocytes (%) (Auto) 8 % (0-9) Eosinophils (%) (Auto) 0 % (0-3) Basophils (%) (Auto) 1 % (0-3) Neutrophils # (Auto) 3.9 x10^3/uL (1.8-7.7) Lymphocytes # (Auto) 1.0 x10^3/uL (1.0-4.8) Monocytes # (Auto) 0.4 x10^3/uL (0.0-1.1) Eosinophils # (Auto) 0.0 x10^3/uL (0.0-0.7) Basophils # (Auto) 0.0 x10^3/uL (0.0-0.2) Sodium Level 144 mmol/L (136-145) 143 mmol/L (136-145) Potassium Level 4.4 mmol/L (3.5-5.1) 4.6 mmol/L (3.5-5.1) Chloride Level 109 mmol/L (98-107) 111 mmol/L (98-107) Carbon Dioxide Level 24 mmol/L (21-32) 23 mmol/L (21-32) Anion Gap 11 (6-14) 9 (6-14) Blood Urea Nitrogen 21 mg/dL (7-20) 22 mg/dL (7-20) Creatinine 0.7 mg/dL (0.6-1.0) 0.8 mg/dL (0.6-1.0) Estimated GFR (Cockcroft-Gault) 80.1 68.7 Glucose Level 147 mg/dL (70-99) 151 mg/dL (70-99) Calcium Level 7.7 mg/dL (8.5-10.1) 8.2 mg/dL (8.5-10.1) Thyroid Stimulating Hormone (TSH) 1.390 uIU/mL (0.358-3.74) Laboratory Tests Test 08/24/20 03:30 Sodium Level 143 mmol/L (136-145) Potassium Level 4.6 mmol/L (3.5-5.1) Chloride Level 111 mmol/L (98-107) Carbon Dioxide Level 23 mmol/L (21-32) Anion Gap 9 (6-14) Blood Urea Nitrogen 22 mg/dL (7-20) Creatinine 0.8 mg/dL (0.6-1.0) Estimated GFR (Cockcroft-Gault) 68.7 Glucose Level 151 mg/dL (70-99) Calcium Level 8.2 mg/dL (8.5-10.1) Medications Active Scripts Medications Dose Route/Sig Max Daily Dose Days Date Category Doxycycline Hyclate 100 Mg Capsule 1 Cap PO BID 08/15/20 Rx Zithromax (Azithromycin) 500 Mg Tablet 1 Tab PO DAILY 08/15/20 Rx Dexamethasone 4 Mg Tablet 4 Mg PO DAILY 5 08/15/20 Rx Impression . IMPRESSION: 1. Acute hypoxemic respiratory failure. 2. COVID-19 viral pneumonia. 3. Hypertension. 4. Generalized weakness and muscle aches secondary to COVID-19. 5. Morbid obesity. Plan . Continue current support with oxygen supplementation, to keep sat above 92% on 4 liters N/C Continue full course of Remdesivir. 6 min walk before discharge Continue Empiric antibiotics on Rocephin and azithro Continue Dexamethasone with taper, will need full 10 day course PT/OT GI/DVT prophylaxis D/W SANDY RAMÍREZ MD Aug 24, 2020 10:40
[2020-08-24] MEDS: REMDESIVIR 100mg in NORMAL SALINE 250ML X 4 DAYS IV SCH (11:12)
--- NOTE | 2020-08-24 11:42 | PDOC ---
PROGRESS NOTES Date of Service: DATE: 08/24/20 TIME: 11:41 Subjective Subjective getting better,feels stronger. Objective Objective Vital Signs Date Time Temp Pulse Resp B/P (MAP) Pulse Ox O2 Delivery O2 Flow Rate FiO2 08/24/20 08:42 73 150/70 08/24/20 08:00 Nasal Cannula 4.0 08/24/20 07:14 97.8 20 92 97.8 Intake and Output 08/24/20 07:00 Intake Total 2570 ml Output Total 229 ml Balance 2341 ml Intake Oral 740 ml IV Total 1830 ml Output Urine Total 225 ml Stool Total 2 ml Urine/Stool Mix 2 ml Physical Exam Abdomen: Soft Heart: Regular rate, Normal S1 Extremities: No clubbing General: Alert HEENT: Atraumatic MUSCULOSKELETAL: No joint tenderness, Osteoarthritic changes both hands Neck: Supple Neuro: Normal speech Psych/Mental Status: Mental status NL Skin: No breakdown Diagnosis Problem List Problems Medical Problems: (1) Community acquired pneumonia Status: Acute Assessment Assessment Problems Medical Problems: (1) Community acquired pneumonia Status: Acute FINAL IMPRESSION: 1. COVID pneumonia. 2. COVID recent infection. 3. History of hypertension. 4. Arthritis. 5. Hypothyroidism. PLAN: Zithromax+rocephin pt continue to improve on present treatment. dexamethsone+remdesivir 4 L nasal canula oxygen Lovenox for dvt prevention. At this time, the patient is admitted to the hospital, hydrate IV fluids, started on Zithromax and Rocephin. Case discussed with Pulmonary today. Started on remdesivir and continue on dexamethasone and see how she improves. DVT prophylaxis with Lovenox. Plan Plan of Care Problems Medical Problems: (1) Community acquired pneumonia Status: Acute Comment Review of Relevant I have reviewed the following items tiara (where applicable) has been applied. Labs Laboratory Tests Test 08/24/20 03:30 Sodium Level 143 mmol/L (136-145) Potassium Level 4.6 mmol/L (3.5-5.1) Chloride Level 111 mmol/L (98-107) Carbon Dioxide Level 23 mmol/L (21-32) Anion Gap 9 (6-14) Blood Urea Nitrogen 22 mg/dL (7-20) Creatinine 0.8 mg/dL (0.6-1.0) Estimated GFR (Cockcroft-Gault) 68.7 Glucose Level 151 mg/dL (70-99) Calcium Level 8.2 mg/dL (8.5-10.1) Medications Current Medications Acetaminophen/ Hydrocodone Bitart (Lortab 5/325) 1 tab PRN Q6HRS PRN PO PAIN Last administered on 08/24/20at 10:00; Start 08/24/20 at 09:30 Amlodipine Besylate (Norvasc) 5 mg DAILY PO Last administered on 08/24/20at 08:42; Start 08/23/20 at 20:30 Hydralazine HCl (Apresoline Inj) 10 mg PRN Q6HRS PRN IVP ELEVATED BP, SEE COMMENTS Last administered on 08/24/20at 04:21; Start 08/23/20 at 20:30 Ondansetron HCl (Zofran Odt) 8 mg PRN Q6HRS PRN PO NAUSEA/VOMITING; Start 08/24/20 at 09:30 Ondansetron HCl (Zofran) 8 mg PRN Q6HRS PRN IVP NAUSEA/VOMITING Last administered on 08/24/20at 10:00; Start 08/24/20 at 09:30 Potassium Chloride (Klor-Con) 20 meq 1X ONCE PO Last administered on 08/23/20at 14:06; Start 08/23/20 at 14:00; Stop 08/23/20 at 14:01; Status DC Vitals/I & O Vital Sign - Last 24 Hours 08/23/20 08/23/20 08/23/20 08/23/20 15:03 19:00 19:25 20:02 Temp 97.9 96.4 97.9 96.4 Pulse 72 64 52 Resp 20 20 B/P (MAP) 164/75 (104) 203/87 (125) 210/93 (132) Pulse Ox 97 96 O2 Delivery Nasal Cannula Nasal Cannula Nasal Cannula O2 Flow Rate 4.0 4.0 4.0 08/23/20 08/23/20 08/23/20 08/24/20 20:53 22:55 23:00 00:01 Temp 96.4 96.4 Pulse 52 47 58 58 Resp 18 B/P (MAP) 210/93 192/86 186/86 (119) 193/94 (127) Pulse Ox 97 O2 Delivery Nasal Cannula O2 Flow Rate 4.0 08/24/20 08/24/20 08/24/20 08/24/20 01:00 03:00 04:21 05:00 Temp 96.9 96.9 Pulse 54 76 66 62 Resp 16 B/P (MAP) 150/69 (96) 181/81 (114) 181/81 147/67 (93) Pulse Ox 90 O2 Delivery Nasal Cannula O2 Flow Rate 4.0 08/24/20 08/24/20 08/24/20 07:14 08:00 08:42 Temp 97.8 97.8 Pulse 73 73 Resp 20 B/P (MAP) 150/70 (96) 150/70 Pulse Ox 92 O2 Delivery Nasal Cannula Nasal Cannula O2 Flow Rate 4.0 4.0 Intake and Output 08/23/20 08/23/20 08/24/20 15:00 23:00 07:00 Intake Total 1670 ml 700 ml 200 ml Output Total 226 ml 3 ml Balance 1670 ml 474 ml 197 ml Justifications for Admission Other Justification HUBER MASCORRO MD Aug 24, 2020 11:42
[2020-08-24] MEDS: AZITHROMYCIN 250 MG in IV NORMAL SALINE 250ML 250 ML IV SCH (21:40)
[2020-08-24] MEDS: cefTRIAXone IV Push 1 GM VIAL. IVP SCH (21:40)
[2020-08-25 03:00] VITALS: BP 150/70
[2020-08-25] MEDS: LEVOTHYROXINE 75 MCG TABLET PO SCH (05:55)
[2020-08-25 07:00] VITALS: BP 160/72
[2020-08-25] MEDS: ENOXAPARIN 40 MG/0.4 ML SYRINGE. SQ SCH ×2 (09:35→20:32)
[2020-08-25] MEDS: PANTOPRAZOLE 40 MG TABLET.DR. PO SCH (09:35)
[2020-08-25] MEDS: DEXAMETHASONE 4 MG TABLET PO SCH (09:35)
[2020-08-25] MEDS: LACTOBACILLUS RHAMNOSUS GG 1 CAPSULE. PO SCH ×2 (09:35→20:33)
[2020-08-25] MEDS: ACETAMINOPHEN 325 MG TABLET. PO PRN ×2 (09:43→20:33)
[2020-08-25 11:00] VITALS: BP 138/64
[2020-08-25] MEDS: REMDESIVIR 100mg in NORMAL SALINE 250ML X 4 DAYS IV SCH (11:09)
--- NOTE | 2020-08-25 11:41 | RAD ---
EXAM: Chest, single view. HISTORY: Covid pneumonia. COMPARISON: 08/21/2020 FINDINGS: A frontal view of the chest is obtained. There is stable diffuse interstitial infiltrate an d small pleural effusions. The heart is stable in size. There is no pneumothorax. IMPRESSION: Stable diffuse interstitial infiltrate and small pleural effusions. Electronically signed by: Sylvia Mullins MD (08/25/2020 11:39 AM) [facility]
--- NOTE | 2020-08-25 13:12 | PDOC ---
PULMONARY PROGRESS NOTES DATE: 08/25/20 TIME: 13:11 Subjective Patient remains on 4.5 liters N/C no increased SOA or cough no overnight events Vitals Vital Signs Date Time Temp Pulse Resp B/P (MAP) Pulse Ox O2 Delivery O2 Flow Rate FiO2 08/25/20 11:00 97.3 69 20 138/64 (88) 95 Nasal Cannula 4.0 97.3 ROS: No Nausea, No Chest Pain, No Abdominal Pain, No Increase Cough Lungs: Clear, Crackles Cardiovascular: S1, S2 Abdomen: Soft Neuro Exam: Alert Extremities: No Edema Skin: Warm Labs Laboratory Tests Test 08/24/20 03:30 Sodium Level 143 mmol/L (136-145) Potassium Level 4.6 mmol/L (3.5-5.1) Chloride Level 111 mmol/L (98-107) Carbon Dioxide Level 23 mmol/L (21-32) Anion Gap 9 (6-14) Blood Urea Nitrogen 22 mg/dL (7-20) Creatinine 0.8 mg/dL (0.6-1.0) Estimated GFR (Cockcroft-Gault) 68.7 Glucose Level 151 mg/dL (70-99) Calcium Level 8.2 mg/dL (8.5-10.1) Medications Active Scripts Medications Dose Route/Sig Max Daily Dose Days Date Category Doxycycline Hyclate 100 Mg Capsule 1 Cap PO BID 08/15/20 Rx Zithromax (Azithromycin) 500 Mg Tablet 1 Tab PO DAILY 08/15/20 Rx Dexamethasone 4 Mg Tablet 4 Mg PO DAILY 5 08/15/20 Rx Comments CXR IMPRESSION: Stable diffuse interstitial infiltrate and small pleural effusions. Impression . IMPRESSION: 1. Acute hypoxemic respiratory failure. 2. COVID-19 viral pneumonia. 3. Hypertension. 4. Generalized weakness and muscle aches secondary to COVID-19. 5. Morbid obesity. Plan . Continue current support with oxygen supplementation, to keep sat above 92% on 4.5 liters N/C CXR PRN--small bilateral pleural effusions no need for intervention at this time Continue full course of Remdesivir. 6 min walk before discharge Continue Empiric antibiotics on Rocephin and azithro Continue Dexamethasone with taper, will need full 10 day course PT/OT GI/DVT prophylaxis D/W SANDY RAMÍREZ MD Aug 25, 2020 13:12
[2020-08-25 15:00] VITALS: BP 145/67
[2020-08-25 19:00] VITALS: BP 178/88
[2020-08-25] MEDS ORDERED: AMLO-186 PO (19:46)
--- NOTE | 2020-08-25 19:48 | SNU/HH DC ---
DISCHARGE WITH HOME HEALTH DISCHARGE INFORMATION: Discharge Date: Aug 26, 2020 Final Diagnosis: Problems Medical Problems: (1) Community acquired pneumonia Status: Acute Condition on Discharge: Stable CODE STATUS: Code Status: Full HOME HEALTH: Face to Face: I certify this patient is under my care and that I, or a nurse practitioner or physician's congressional assistant working with me, had a face to face encounter that meets the physician face to face encounter requirements with this patient on []. Medical Complications: Pneumonia RN For Eval/Treatment: Yes Physical Therapy For: Evalulation/Treatment Home Health Aide For: Self-care FIXING CARPENTER For: Community Resources Pt Meets Homebound Status: Unsteady balance w/ amb, POST DISCHARGE ORDERS: Activity Instructions for Disc: Activity as tolerated DIET AFTER DISCHARGE: Low Sodium 2 gm CHECKS AFTER DISCHARGE: Checks after discharge: Check blood press - daily, Check your Temp as needed TREATMENT/EQUIPMENT ORDERS: Adaptive Equipment Issued: None, Walker Discharge Respiratory Equipmen: Oxygen CERTIFICATION STATEMENT: Certification Statement: Certification Statement: Based on the above finding, I certify that this patient is confined to the home and needs intermittent detention care, physical therapy and/or speech therapy, or continues to need occupational therapy.~ This patient is under my care, and I have initiated the establishment of the plan of care.~ This patient will be followed by myself or a community physician who will periodically review the plan of care. Home Meds Active Scripts Amlodipine Besylate (AMLODIPINE BESYLATE) 5 Mg Tablet, 5 MG PO DAILY for htn for 30 Days, #30 TAB Prov:HUBER MASCORRO MD 08/25/20 Doxycycline Hyclate (DOXYCYCLINE HYCLATE) 100 Mg Capsule, 1 CAP PO BID for pneumonia, #14 CAP Prov:HUBER MASCORRO MD 08/15/20 Reported Medications Levothyroxine Sodium (LEVOTHYROXINE SODIUM) 75 Mcg Tablet, 1 TAB PO DAILY for suppl 08/23/20 Discontinued Scripts Azithromycin (ZITHROMAX) 500 Mg Tablet, 1 TAB PO DAILY for pneumonia, #3 TAB Prov:HUBER MASCORRO MD 08/15/20 Dexamethasone (DEXAMETHASONE) 4 Mg Tablet, 4 MG PO DAILY for covid for 5 Days, #5 TAB Prov:HUBER MASCORRO MD 08/15/20 HUBER MASCORRO MD Aug 25, 2020 19:48
[2020-08-25] MEDS: AZITHROMYCIN 250 MG in IV NORMAL SALINE 250ML 250 ML IV SCH (20:32)
[2020-08-25] MEDS: cefTRIAXone IV Push 1 GM VIAL. IVP SCH (20:32)
[2020-08-25 23:00] VITALS: BP 152/67
[2020-08-26 03:00] VITALS: BP 155/68
[2020-08-26] MEDS: LEVOTHYROXINE 75 MCG TABLET PO SCH (05:24)
[2020-08-26 07:00] VITALS: BP 163/68
--- NOTE | 2020-08-26 09:04 | PDOC ---
PROGRESS NOTES Date of Service: DATE: 08/26/20 TIME: 09:02 Subjective Subjective feels better Objective Objective Vital Signs Date Time Temp Pulse Resp B/P (MAP) Pulse Ox O2 Delivery O2 Flow Rate FiO2 08/26/20 07:00 96.9 67 22 163/68 (99) 95 Nasal Cannula 4.0 96.9 Intake and Output 08/26/20 07:00 Intake Total 1150 ml Output Total 1 ml Balance 1149 ml Intake Oral 1150 ml Stool Total 1 ml # Voids 4 Physical Exam Abdomen: Soft Heart: Regular rate, Normal S1 Extremities: No clubbing General: Alert HEENT: Atraumatic MUSCULOSKELETAL: No joint tenderness, Osteoarthritic changes both hands Neck: Supple Neuro: Normal speech Psych/Mental Status: Mental status NL Skin: No breakdown Diagnosis Problem List Problems Medical Problems: (1) Community acquired pneumonia Status: Acute Assessment Assessment Problems Medical Problems: (1) Community acquired pneumonia Status: Acute FINAL IMPRESSION: 1. COVID pneumonia. 2. COVID recent infection. 3. History of hypertension. 4. Arthritis. 5. Hypothyroidism. PLAN: d/c home today with home health. needs potable oxygen for home use pt continue to improve on present treatment. finished dexamethsone+remdesivir 4 L nasal canula oxygen d/c home on doxycycline for 5 days. At this time, the patient is admitted to the hospital, hydrate IV fluids, started on Zithromax and Rocephin. Case discussed with Pulmonary today. Started on remdesivir and continue on dexamethasone and see how she improves. DVT prophylaxis with Lovenox. Plan Plan of Care Problems Medical Problems: (1) Community acquired pneumonia Status: Acute Comment Review of Relevant I have reviewed the following items tiara (where applicable) has been applied. Vitals/I & O Vital Sign - Last 24 Hours 08/25/20 08/25/20 08/25/20 08/25/20 09:35 11:00 15:00 19:00 Temp 97.3 95.8 96.6 97.3 95.8 96.6 Pulse 64 69 66 73 Resp B/P (MAP) 160/72 138/64 (88) 145/67 (93) 178/88 (118) Pulse Ox 95 95 93 O2 Delivery Nasal Cannula Nasal Cannula Nasal Cannula O2 Flow Rate 4.0 4.0 4.0 1/11/1008/25/20 08/26/20 08/26/20 20:00 23:00 03:00 07:00 Temp 97.4 97.2 96.9 97.4 97.2 96.9 Pulse 67 72 67 Resp B/P (MAP) 152/67 (95) 155/68 (97) 163/68 (99) Pulse Ox 95 92 95 O2 Delivery Nasal Cannula Nasal Cannula Nasal Cannula Nasal Cannula O2 Flow Rate 4.0 4.0 4.0 4.0 Intake and Output 08/25/20 08/25/20 08/26/20 15:00 23:00 07:00 Intake Total 400 ml 550 ml 200 ml Output Total 1 ml Balance 400 ml 549 ml 200 ml Justifications for Admission Other Justification HUBER MASCORRO MD Aug 26, 2020 09:04
[2020-08-26] MEDS: ENOXAPARIN 40 MG/0.4 ML SYRINGE. SQ SCH (09:30)
[2020-08-26] MEDS: LACTOBACILLUS RHAMNOSUS GG 1 CAPSULE. PO SCH (09:31)
[2020-08-26] MEDS: DEXAMETHASONE 4 MG TABLET PO SCH (09:31)
[2020-08-26] MEDS: PANTOPRAZOLE 40 MG TABLET.DR. PO SCH (09:31)
[2020-08-26] MEDS: REMDESIVIR 100mg in NORMAL SALINE 250ML X 4 DAYS IV SCH (09:48)
[2020-08-26 11:00] VITALS: BP 120/59
--- NOTE | 2020-08-26 11:35 | PDOC ---
PULMONARY PROGRESS NOTES DATE: 08/26/20 TIME: 11:35 Subjective Patient had a 6-minute walk requires oxygen Not more short of air Afebrile Vitals Vital Signs Date Time Temp Pulse Resp B/P (MAP) Pulse Ox O2 Delivery O2 Flow Rate FiO2 08/26/20 09:31 67 163/68 08/26/20 08:00 Nasal Cannula 4.0 08/26/20 07:00 96.9 22 95 96.9 ROS: No Nausea, No Chest Pain, No Abdominal Pain, No Increase Cough Lungs: Clear, Crackles Cardiovascular: S1, S2 Abdomen: Soft Neuro Exam: Alert Extremities: No Edema Skin: Warm Medications Active Scripts Medications Dose Route/Sig Max Daily Dose Days Date Category Doxycycline Hyclate 100 Mg Capsule 1 Cap PO BID 08/15/20 Rx Zithromax (Azithromycin) 500 Mg Tablet 1 Tab PO DAILY 08/15/20 Rx Dexamethasone 4 Mg Tablet 4 Mg PO DAILY 5 08/15/20 Rx Comments CXR IMPRESSION: Stable diffuse interstitial infiltrate and small pleural effusions. Impression . IMPRESSION: 1. Acute hypoxemic respiratory failure./Chronic respiratory failure 2. COVID-19 viral pneumonia. 3. Hypertension. 4. Generalized weakness and muscle aches secondary to COVID-19. 5. Morbid obesity. Plan . Needs oxygen at home for chronic respiratory failure, greatly benefiting from the oxygen supplementation Follow-up in the office in September CXR PRN--small bilateral pleural effusions no need for intervention at this time Continue full course of Remdesivir. Rx written for dexamethasone Rx for doxycycline PT/OT GI/DVT prophylaxis D/W SANDY RAMÍREZ MD Aug 26, 2020 11:35
--- NOTE | 2020-08-26 12:45 | NUR ---
SW following for discharge planning. Spoke with RN and reviewed chart. PT recommendation is SNU. Spoke with pt and pt's daughter Kristal ([phone]) and they are refusing SNU. Pt and daughter agreeable to HH. 6 min walk indicated need for home 02. SW phoned and faxed clinicals and orders to Leigh Ann with [facility] and Flakito with [facility]. 02 tank provided to pt for transportation home. Pt and pt's daughter communicated understanding to call number on tank for home 02 setup. Patient choice of vendor form completed. Son to provide pt with transportation home at 1400. No further SW needs at this time. Addendum: 08/26/20 at 1536 by ANIKET LANDRUM LUCITA confirmed with both [facility] and [facility] that orders were received.
--- NOTE | 2020-08-26 14:34 | NUR ---
Discharge Note: TATI ELISE [address] [place] [address] Discharge instructions and discharge home medications reviewed with Patient and a copy given. All questions have been answered and understanding verbalized. The following instructions and handouts were given: DIET, ACTIVITY, MEDICATION LIST AND FOLLOW UP INSTRUCTIONS PROVIDED TO PATIENT. PATIENT PROVIDED WITH HOME OXYGEN TANK AND INSTRUCTIONS TO SET UP CONCENTRATOR WITH OXYGEN COMPANY. HOME HEALTH ALSO ARRANGED. Discontinued lines and drains: Peripheral IV discontinued and catheter intact. Patient discharged to Home w/services with Family Member via Wheelchair
--- NOTE | 2020-09-01 10:29 | PDOC ---
Provider Note Date of Service: DATE: 09/01/20 TIME: 10:28 Provider Note Discharge summary dictated.#[id number]. Justifications for Admission Other Justification HUBER MASCORRO MD Sep 01, 2020 10:29
--- NOTE | 2020-09-01 10:35 | DS ---
DATE OF DISCHARGE: 08/26/2020 REASON FOR ADMISSION TO THE HOSPITAL: COVID pneumonia. CONSULTATION: Nupur Peterson MD. COMPLICATIONS NOTED: None. HOSPITAL COURSE: The patient is an 80-year-old female. The patient was admitted to the hospital before and she stayed for one day. At the time, she was feeling better. She has symptoms of upper respiratory infection and a COVID test was done, but she wanted to go home. The result was not available and the patient was discharged; the COVID was positive. The patient was discharged on Zithromax and prednisone. Over the couple of days, the patient got progressively worse and she was having short of breath. The patient was admitted to the hospital on 08/21/2020 and x-ray shows infiltrates in the lung. She was requiring 4 liters of oxygen. The patient was started on remdesivir IV, dexamethasone was given, and the patient after a couple of days, was feeling better and she was discharged home on home oxygen 4 liters and home PT/OT. FINAL DIAGNOSES: 1. COVID pneumonia. 2. Respiratory failure, requiring oxygen. 3. Hypertension. 4. Hypothyroidism. DISPOSITION: Home with home health oxygen between 2-4 liters and see [facility] for discharge medications. HUBER MASCORRO MD DR: TAMIA/nts JOB#: [id number] / [id number]
== END 2020-08-26 14:00 | disposition home health service (06) | DRG 177 ==
LOC: ER 21:17 → ED HOLD 22:40 → 6 SOUTH 22:40 → UNDOADMIN 22:40 → ED HOLD 08-22 03:15 → 6 SOUTH 08-22 03:15 → UNDODISIN 08-26 14:00
PROVIDERS: ADMIT Internal Medicine; ATTEND Internal Medicine
PROC: XW033E5 Introduction of Remdesivir Anti-infective into Peripheral Vein, Percutaneous Approach, New Technology Group 5 (ICD-10-PCS; principal; 2020-08-21)
DX: U07.1 COVID-19 (principal); J96.21 Acute and chronic respiratory failure with hypoxia; J12.82 Pneumonia due to coronavirus disease 2019; E03.9 Hypothyroidism, unspecified; E66.01 Morbid (severe) obesity due to excess calories; I10 Essential (primary) hypertension; M19.90 Unspecified osteoarthritis, unspecified site; Z20.828 Contact with and (suspected) exposure to other viral communicable diseases; Z96.641 Presence of right artificial hip joint; Z90.49 Acquired absence of other specified parts of digestive tract; Z90.710 Acquired absence of both cervix and uterus; Z68.37 Body mass index [BMI] 37.0-37.9, adult; Z79.899 Other long term (current) drug therapy
CPT/HCPCS: 36415; 71045; 80048; 80053; 82550; 84443; 85025; 94618; 96365; 96375; J0360; J0456; J0696; J1100; J1650; J2270; J2405; J7030; J7050; 99285-25; G0378